=== PATIENT | female | born 1975 | race Caucasian/White ===

== ENCOUNTER 2020-01-19 11:32 | Emergency (ER) | payer OTHER, SELFPAY ==
--- NOTE | ~2020-01-19 | CT_ITS ---
EXAMINATION: CT abdomen pelvis w con EXAM DATE: 01/19/2020 13:38 INDICATION: Worsening left lower quadrant pain. TECHNIQUE: Spiral CT of the abdomen and pelvis was performed following intravenous injection of 100 m L Omnipaque 350. Axial, coronal and sagittal images were reviewed. The dose-length product (DLP) fo r this examination was 977.55 mGy-cm. The exposure was tailored according to patient size (auto mA e xposure control), and iterative reconstruction (ASIR) was used as additional dose reduction technique . There is no prior study for comparison. FINDINGS: There is bilateral adrenal gland hyperplasia. The liver, spleen, adrenal glands and pancre as are otherwise unremarkable. Gallbladder is unremarkable. No biliary obstruction. Portal and spl enic veins are patent. Kidneys enhance symmetrically. There is no hydronephrosis. Enlarged fibroi d uterus. Ovaries are unremarkable. The bladder is unremarkable. There is no retroperitoneal or pelv ic lymphadenopathy. There is mild to moderate scattered arteriosclerotic disease. Tiny umbilical fa t-containing hernia. The appendix is normal. The stomach and small bowel are unremarkable. There is expected amount of c olonic stool. No free intraperitoneal gas. The heart is normal in size. There are no pericardial or pleural effusions. Bibasilar linear banding appearance most consistent with subsegmental atelect asis. There is right lower lobe calcified granuloma. L5-S1 lumbar fusion. The bones are unremarkable . IMPRESSION: 1. No acute intra-abdominal findings. 2. Fibroid uterus. 3. Adrenal hyperplasia. 4. Bibasilar subsegmental atelectasis. Reviewed, dictated and finalized at location A.
[2020-01-19 11:57] VITALS: BP 143/79; PULSE 84; RESP 20; TEMP 36.9; O2SAT 100
[2020-01-19 12:06] VITALS: BP 143/79; PULSE 84; RESP 20; TEMP 36.9; O2SAT 100
--- NOTE | 2020-01-19 12:24 | PC.NURSE ---
AIXA Mclaughlin at bedside for assessment.
[2020-01-19 12:25] VITALS: BP 149/79; PULSE 75; RESP 11; O2SAT 95
[2020-01-19 12:41] VITALS: BP 150/83; PULSE 70; RESP 19; O2SAT 92
[2020-01-19 12:48] LABS: Basophils Absolute Auto 0.1 K/mm3 (0.0-0.1); Basophils Percent Auto 0.6 % (0.2-1.2); Eosinophils Absolute Auto 0.2 K/mm3 (0-0.3); Eosinophils Percent Auto 1.5 % (0-4.4); Hematocrit 45.3 % (37.0-47.0); Hemoglobin 15.8 g/dL (12.0-15.0); Immature Granulocyte Absolute 0.08 K/mm3 (0.00-0.031); Immature Granulocyte Percent A 0.6 % (0-0.5); Lymphocytes Absolute Auto 3.07 K/mm3 (0.9-3.2); Lymphocytes Percent Auto 22.1 % (18.3-44.2); Mean Corpuscular HGB Conc 34.9 g/dl (32-36); Mean Corpuscular Hemoglobin 32.2 pg (26-34); Mean Corpuscular Volume 92.3 fl (80-100); Mean Platelet Volume 11.8 fl (7.4-10.4); Monocytes Absolute Auto 1.1 K/mm3 (0.1-0.6); Monocytes Percent Auto 7.6 % (2.6-8.5); Neutrophils Absolute Auto 9.4 K/mm3 (1.3-6.7); Neutrophils Percent Auto 67.6 % (45.5-73.1); Platelet Count Result 171 k/mm3 (150-375); Red Blood Count 4.91 M/mm3 (4.2-5.4); Red Cell Distribution Width 13.3 % (11.5-14.5); White Blood Count 13.9 K/mm3 (4.5-10.0)
[2020-01-19 12:50] LABS: Add Urine Microscopic? NO; Appearance Urine Clear (Clear); Bilirubin Urine Negative (Negative); Blood Urine Negative (Negative); Color Urine Straw (Yellow); Glucose Urine UA Negative (Negative); Ketones Urine Negative (Negative); Leukocyte Esterase Ur Negative LEU/UL (Negative); Nitrate Urine Negative (Negative); Protein Urine Negative (Negative); Specific Grav Ur 1.008 (1.001-1.035); Urobilinogen Urine Negative mg/dL (<2.0)
[2020-01-19 12:57] LABS: Platelet Estimate Adequate (Adequate); Stomatocytes 1+ (NORMAL)
[2020-01-19 13:01] LABS: Alanine Aminotransferase 12 U/L (4-35); Alkaline Phosphatase 72 U/L (38-126); Anion Gap 10.6 mmol/L (7-16); Aspartate Amino Transferase 17 U/L (14-36); Bilirubin,Total 0.5 mg/dL (0.2-1.3); Blood Urea Nitrogen 10 mg/dL (7-17); Calcium 8.7 mg/dL (8.4-10.2); Carbon Dioxide 26 mmol/L (22-30); Chloride 101 mmol/L (98-107); Estimated CRCL calculation 110 ml/min; Estimated Glomerular Filt Rate > 60; Glucose 132 mg/dL (65-105); Potassium 3.6 mmol/L (3.4-5.0); Sodium 134 mmol/L (137-145)
--- NOTE | 2020-01-19 14:33 | ED.ABDPAIN ---
HPI - Abdominal Pain General Chief Complaint: Abdominal Pain Stated Complaint: fever x4 days, back/abd pain Time Seen by Provider: 01/19/20 12:05 Source: patient Mode of arrival: ambulatory Limitations: no limitations History of Present Illness HPI narrative: Patient presents with chief complaint of left lower quadrant abdominal pain that has persisted over the past week. Patient states she is also noticed some episodes of sticky bowel movement. Patient denies extremely foul odor or watery texture. Patient denies any blood noted in her stool. Patient states that she has been on Augmentin for a sinus infection which she began on 08 January but she does not believe that it is connected with her current symptoms. Patient states that she believes her symptoms are due to something with her colon on her ovary. Patient states that she was told that she had ovarian cyst at one point in time. Patient has not had any nausea, vomiting. Patient states that she took her temperature the past few days and noted that it was 100.3 so she felt she had a fever. Patient has been able to eat and drink normally. Patient states that she has not seen her primary care Jani Vo regarding her symptoms. Related Data Home Medications Medication Instructions Recorded Confirmed Humulin 70/30 U-100 Insulin 10 unit SUBCUT DAILY 07/01/19 07/02/19 amlodipine 10 mg PO HS 07/01/19 07/01/19 dicyclomine 10 mg PO QID PRN 07/01/19 07/01/19 hydrocodone-acetaminophen [[place]] 1 tablet PO BID PRN 07/01/19 07/01/19 losartan 50 mg PO HS 07/01/19 07/01/19 paroxetine HCl [Paxil] 60 mg PO HS 07/01/19 07/01/19 ascorbic acid (vitamin C) mg PO 01/19/20 cholecalciferol (vitamin D3) [Kids 10 mcg PO DAILY 01/19/20 Vitamin D3] magnesium oxide 400 mg PO DAILY 01/19/20 mv,Ca,ecr-dnlb-ZI-guarana-caff tablet PO 01/19/20 [One-[employer]] potassium chloride 10 meq PO DAILY 01/19/20 solifenacin 10 mg PO DAILY 01/19/20 Allergies Allergy/AdvReac Type Severity Reaction Status Date / Time No Known Allergies Allergy Verified 01/19/20 12:03 Review of Systems Review of Systems: Narrative: CONSTITUTIONAL: Denies fever, chills, or sweats. EYES: Denies visual changes, redness, or discharge. ENT: Denies rhinorrhea, congestion, sore throat, or otalgia. CARDIOVASCULAR: Denies chest pain, palpitations, or edema. RESPIRATORY: Denies cough or dyspnea. GASTROINTESTINAL: Reports abdominal pain, nausea, reports sticky stool denies vomiting, GENITOURINARY: Denies dysuria or hematuria. SKIN: Denies rash or itching. MUSCULOSKELETAL: Denies back pain, joint pain, or myalgia. NEUROLOGIC: Denies headache, numbness, dizziness, or weakness. PSYCHIATRIC: Denies anxiety or depression. [facility] Past Medical History Medical History (Updated 01/19/20 @ 14:37 by Fatuma Krueger PA-C) Essential hypertension Heart murmur Hypertension associated with diabetes Mixed anxiety depressive disorder Systolic ejection murmur Tobacco abuse Type II diabetes mellitus Surgical History Surgical History H/O dilation and curettage History of X2 History of lumbar fusion Social History Social History Smoking packs per day: 1 Smoking cigarettes per day: 20.0 Years smoked: 21 Smoking pack-years: 21.00 Smoking status: Current every day smoker Tobacco type: cigarettes Alcohol intake: current Substance use: never Gender identity (if verbalized by the patient): Female Sexual Orientation (if Verbalized by the Patient): Straight or Heterosexual Spiritual care concerns: No Agree to blood products: Yes Exam Narrative: Exam Narrative: GENERAL: Well-appearing, well-nourished, and in no acute distress. HEAD: Normocephalic, atraumatic. EYES: PERRLA and EOMI. ENT: Nares clear, no rhinorrhea or epistaxis. Mucous membranes moist. Oropharynx without tonsillar hypertrophy
[2020-01-19 14:54] VITALS: BP 146/84; PULSE 68; RESP 12; TEMP 37.2; O2SAT 97
== END 2020-01-19 14:56 | disposition home or self-care (01) ==
PROVIDERS: Physician Assistant; Emergency Provider Emergency Medicine
DX: R10.32 Left lower quadrant pain (principal); I10 Essential (primary) hypertension; E11.9 Type 2 diabetes mellitus without complications; F41.8 Other specified anxiety disorders; Z79.4 Long term (current) use of insulin; Z98.1 Arthrodesis status; F17.210 Nicotine dependence, cigarettes, uncomplicated; D25.9 Leiomyoma of uterus, unspecified; E27.8 Other specified disorders of adrenal gland
CPT/HCPCS: 36415; 74177; 80053; 81003; 81025; 85025; 99284; Q9967

== ENCOUNTER 2020-03-12 09:21 | Outpatient (CLI) | payer OTHER, SELFPAY ==
--- NOTE | ~2020-03-12 | MMUS_ITS ---
EXAMINATION: MM diagnostic flora BI w bianca, US breast BI limited HISTORY: Right breast lump for one month TECHNIQUE: ML, MLO and cc full field Tomosynthesis views of each breast 3-D tomosynthesis images were performed and synthetic 2-D images were generated. CAD analysis was submitted and interpreted. High resolution targeted right and left inner lower and outer lower quadrant breast ultrasound was perform ed. COMPARISON: None BREAST PARENCHYMAL COMPOSITION: There are scattered areas of fibroglandular density. FINDINGS: MAMMOGRAPHIC FINDINGS: There is an approximately 2.1 x 2.6 0.4 cm mass in the inferolateral right subareolar area. Ultrasoun d correlation was obtained. Approximately 3.5 x 9 mm reniform low-density circumscribed opacity is noted anteriorly in the lower outer left breast. 6 x 11 mm circumscribed reniform low-density opacity is noted anteriorly in the lower inner quadrant of the left breast. ULTRASOUND: Right breast: 8-9:00 position 4 cm from nipple: 1.2 x 2.1 x 2.9 cm circumscribed oval parallel solid mass is noted, with internal vascularity. Consider ultrasound-guided biopsy for tissue diagnosis. 8-9:00 position 4 cm from nipple: There is a stellate hypoechoic approximately 10 mm deep 3.9 mm wide lesion, taller than wide, with posterior shadowing; this lesion is suspicious. Ultrasound-guided bio psy is recommended. Left breast: 3:00 3 cm from nipple: Parallel circumscribed 1.9 x 4.3 mm sonolucency, likely a small cyst 5:00 subareolar area: 5.4 x 4.2 x 3.9 mm hypoechoic lesion with posterior shadowing; consider ultraso und-guided biopsy 6:00 subareolar area: Parallel circumscribed hypoechoic 3.7 x 10.1 x 9.9 mm lesion without internal v ascularity or suspicious shadowing, likely benign IMPRESSION: 1. Right breast 8-9:00 up to 2.9 cm solid mass; consider ultrasound-guided biopsy 2. 8.-9:00 stellate hypoechoic lesion with shadowing; recommend ultrasound-guided biopsy 3. Hypoechoic shadowing 5:00 subareolar left 5.4 x 4.2 x 3.9 mm lesion; consider ultrasound-guided bi opsy BI-RADS category 4, suspicious findings. Reviewed, dictated and finalized at location A. IMPRESSION: 1. Right breast 8-9:00 up to 2.9 cm solid mass; consider ultrasound-guided biop sy 2. 8.-9:00 stellate hypoechoic lesion with shadowing; recommend ultrasound-guid ed biopsy 3. Hypoechoic shadowing 5:00 subareolar left 5.4 x 4.2 x 3.9 mm lesion; conside r ultrasound-guided biopsy BI-RADS category 4, suspicious findings.
== END 2020-03-12 09:22 | disposition home or self-care (01) ==
PROVIDERS: Visit Provider Nurse Practitioner Obstetrics & Gynecology
DX: N63.10 Unspecified lump in the right breast, unspecified quadrant (principal); R92.8 Other abnormal and inconclusive findings on diagnostic imaging of breast
CPT/HCPCS: 76642; 77062; 77066; G0279

== ENCOUNTER 2020-05-22 02:17 | Outpatient (CLI) | payer OTHER, SELFPAY ==
[2020-05-22 19:10] LABS: SARS-CoV-2 RNA PCR Negative
== END 2020-05-22 02:18 | disposition home or self-care (01) ==
LOC: ANHCOVIDDT 02:18
PROVIDERS: PCP Internal Medicine Infectious Disease; Visit Provider Obstetrics & Gynecology
DX: Z01.812 Encounter for preprocedural laboratory examination (principal); Z20.828 Contact with and (suspected) exposure to other viral communicable diseases
CPT/HCPCS: 87635; C9803; U0003

== ENCOUNTER 2020-05-22 08:27 | Outpatient (CLI) | payer OTHER, SELFPAY ==
--- NOTE | 2020-05-22 08:29 | ECG_ITS ---
Measurements Intervals [place] Rate: 69 P: -63 MN: 147 QRS: 55 QRSD: 90 T: 53 QT: 402 QTc: 433 Interpretive Statements ECTOPIC ATRIAL RHYTHM BASELINE ARTIFACT- I, II, III, AVR, AVL, AVF, V3-V4 ABNORMAL ECG Electronically Signed On 05-22-2020 8:44:29 [employer] by Vipin Weinstein D.O.
[2020-05-22 08:50] LABS: Basophils Absolute Auto 0.1 K/mm3 (0.0-0.1); Basophils Percent Auto 0.7 % (0.2-1.2); Eosinophils Absolute Auto 0.3 K/mm3 (0-0.3); Hematocrit 45.7 % (37.0-47.0); Hemoglobin 15.6 g/dL (12.0-15.0); Immature Granulocyte Absolute 0.06 K/mm3 (0.00-0.031); Immature Granulocyte Percent A 0.5 % (0-0.5); Lymphocytes Absolute Auto 2.89 K/mm3 (0.9-3.2); Lymphocytes Percent Auto 21.9 % (18.3-44.2); Mean Corpuscular HGB Conc 34.1 g/dl (32-36); Mean Corpuscular Hemoglobin 32.6 pg (26-34); Mean Corpuscular Volume 95.6 fl (80-100); Mean Platelet Volume 11.5 fl (7.4-10.4); Monocytes Absolute Auto 1.4 K/mm3 (0.1-0.6); Monocytes Percent Auto 10.5 % (2.6-8.5); Neutrophils Absolute Auto 8.5 K/mm3 (1.3-6.7); Neutrophils Percent Auto 64.4 % (45.5-73.1); Nucleated Red Blood Cells Perc 0.2 % (0.0-0.2); Platelet Count Result 184 k/mm3 (150-375); Red Blood Count 4.78 M/mm3 (4.2-5.4); Red Cell Distribution Width 13.4 % (11.5-14.5); White Blood Count 13.2 K/mm3 (4.5-10.0)
[2020-05-22 08:58] LABS: Alanine Aminotransferase 16 U/L (4-35); Albumin Level 4.1 g/dL (3.5-5.1); Alkaline Phosphatase 89 U/L (38-126); Anion Gap 6 mmol/L (8-16); Aspartate Amino Transferase 22 U/L (14-36); Bilirubin,Total 0.4 mg/dL (0.2-1.3); Blood Urea Nitrogen 15 mg/dL (7-17); Calcium 9.1 mg/dL (8.4-10.2); Carbon Dioxide 29 mmol/L (22-30); Chloride 101 mmol/L (98-107); Estimated Glomerular Filt Rate > 60; Glucose 152 mg/dL (65-105); Potassium 4.1 mmol/L (3.4-5.0); Sodium 136 mmol/L (137-145)
== END 2020-05-22 08:28 | disposition home or self-care (01) ==
LOC: ANHSURGERY 08:29
PROVIDERS: PCP Physician Assistant; Visit Provider Obstetrics & Gynecology
DX: Z01.818 Encounter for other preprocedural examination (principal); D25.9 Leiomyoma of uterus, unspecified; I10 Essential (primary) hypertension; I49.1 Atrial premature depolarization
CPT/HCPCS: 36415; 80053; 85025; 86850; 86900; 86901; 87635; 93005; U0003

== ENCOUNTER 2020-05-26 15:02 | Inpatient (IN) | payer OTHER, SELFPAY ==
[2020-05-05 15:08] VITALS: BMI 33.0
--- NOTE | 2020-05-08 14:37 | PC.NURSE ---
date and time change given. states no change in health hx since last interview on 05/05/20
[2020-05-25] VITALS (14 sets, daily range): BP systolic 124–162; BP diastolic 61–76; PULSE 64–79; RESP 14–20; TEMP 36.4–37.2; O2SAT 93–100
--- NOTE | 2020-05-25 07:12 | WPDANESEPPF ---
Anes - Initial Pre Proc Eval Procedure: Operation Date: 05/25/20 09:00 Proposed Procedures p Total Laparoscopic Hysterectomy, Bilateral Salpingo-Oophorectomy - Marixa Meza MD Date/Time: 05/25/20 07:12 Surgeon: Marixa Meza MD Pre Op Diagnosis: Uterine Leiomyoma Patient Data Age: 44 Gender: F Height: 1.65 m Weight: 89.91 kg Allergies Allergy/AdvReac Type Severity Reaction Status Date / Time No Known Allergies Allergy Verified 05/25/20 07:33 Home Medications Medication Instructions Recorded Confirmed Type Humulin 70/30 U-100 Insulin 10 unit SUBCUT DAILY 07/01/19 05/05/20 History amlodipine 10 mg PO DAILY 07/01/19 05/25/20 History hydrocodone-acetaminophen [[place]] 1 tablet PO PRN PRN 07/01/19 05/05/20 History losartan 50 mg PO DAILY 07/01/19 05/25/20 History paroxetine HCl [Paxil] 60 mg PO DAILY 07/01/19 05/25/20 History aspirin [Children's Aspirin] 81 mg PO QAM 30 Days #30 tablet 07/02/19 05/05/20 Rx ascorbic acid (vitamin C) 500 mg PO DAILY 01/19/20 05/05/20 History cholecalciferol (vitamin D3) [Kids 10 mcg PO DAILY 01/19/20 05/05/20 History Vitamin D3] magnesium oxide 400 mg PO DAILY 01/19/20 05/05/20 History mv,Ca,wfp-topy-FB-guarana-caff 1 tablet PO DAILY 01/19/20 05/05/20 History [[employer]] potassium chloride 10 meq PO DAILY 01/19/20 05/05/20 History solifenacin 10 mg PO DAILY 01/19/20 05/05/20 History Patient hx anesthesia problems: none Family hx anesthesia problems: none PMFSH Past Medical History Medical History (Updated 05/25/20 @ 07:14 by Ryder Cunningham MD) Anxiety Chronic narcotic use COPD (chronic obstructive pulmonary disease) Depression Essential hypertension Heart murmur Hypertension associated with diabetes Mixed anxiety depressive disorder Obesity Systolic ejection murmur TIA (transient ischemic attack) Tobacco abuse Type II diabetes mellitus Surgical History Surgical History H/O dilation and curettage History of X2 History of lumbar fusion Family History Family History Father Hypertension Murmur Pacemaker Mother Seizure Social History Social History Smoking packs per day: 1 Smoking cigarettes per day: 20.0 Years smoked: 25 Smoking pack-years: 25.00 Smoking status: Current every day smoker Tobacco type: cigarettes Alcohol intake: current Substance use: never Living arrangements: with family Gender identity (if verbalized by the patient): Female Spiritual care concerns: No Agree to blood products: Yes Anes - Eval Final PreProcedure Day of Procedure 05/25/20 07:12 Patient weight: obese Heart: regular rate and rhythm Lungs: clear to auscultation and normal air movement Airway: Mallampati scale class II Neurological: alert and oriented Last oral intake: >/= 8 hours ASA classification: III Emergent: no Anesthetic plan: proceed Anesthesia type and monitoring: general ETT Informed Consent: The patient's anesthetic plan and its attendant risks and benefits were discussed with the patient/family/POA. Questions were solicited and answers provided to the satisfaction of the patient/family/POA.
[2020-05-25] MEDS: LACTATED RINGERS 1,000 ML 30 ML IV CONT ×2 (07:50→12:15)
[2020-05-25 07:54] LABS: Glucose Point of Care 130 (65-105)
[2020-05-25] MEDS: ACETAMINOPHEN 500 MG TABLET 1000 MG PO (08:01)
[2020-05-25] MEDS: KETOROLAC 15 MG/ML VIAL (*BKC) IV PUSH (08:02)
--- NOTE | 2020-05-25 09:23 | WPDHPUPDATE1 ---
History and Physical Update Update Date/Time: 05/25/20 09:23 History and Physical has been reviewed, including an updated exam of the patient. There are NO changes in the patient's condition. Risks, benefits, and alternatives have been discussed and questions answered. Patient agrees to proceed with procedure.
[2020-05-25] MEDS: ceFAZolin 2 GM/D5W 50 ML 2 GM/50 ML BAG IVPB (09:28)
--- NOTE | 2020-05-25 12:30 | PM.PROC ---
Procedure Note - Detailed Date of procedure: 05/25/20 Pre-op diagnosis: Uterine Leiomyoma Severe menorrhagia Post-op diagnosis: same Procedure performed: Total laparoscopic hysterectomy bilateral salpingo-oophorectomy Description of procedure: The patient was taken to the operating room. She was prepped and draped in the dorsal lithotomy position. A speculum was placed in the vagina. The cervix was grasped with a tenaculum. Stay sutures were placed at 3 and 9:00 a.m. of 0 Vicryl. The stay sutures were brought through the [place] up. The FADI manipulator was placed in the vagina with a fixed Carmen cup. The cup was then pushed up around the cervix. The sutures were tied to the handle of the FADI manipulator. A 5 mm incision was made on the abdominal skin of the left upper quadrant using a scalpel. A 5 mm trocar was inserted into the intra-abdominal cavity under direct visualization the scope. Pneumoperitoneum was achieved. An 11 mm incision was made in the left lower quadrant of the abdomen with a scalpel. A 11 mm trocar was inserted into the intra-abdominal cavity under direct visualization the scope. A 5 mm periumbilical incision was made. A 5 mm scope was placed into the intra-abdominal cavity under direct visualization of the scope. The ureters were identified. The ureters were observed to be away from the infundibulopelvic ligaments. These infundibulopelvic ligaments were isolated, cauterized, and transected with LigaSure cautery. This was done in a bilateral fashion. The para ovarian tissue along the pelvic sidewall was cauterized and transected in a bilateral fashion using the ligature cautery. The round ligaments were cauterized and transected bilaterally with LigaSure cautery. The broad ligaments were cauterized and transected along the lateral aspects of the uterus down the level of the uterine arteries. A bladder flap was created using sharp and blunt dissection. The ureters were dissected out bilaterally down to the level of the uterine arteries. The could be visualized from the pelvic brim down the uterine arteries. Staying very close to the cervix the parametrium was cauterized transected in a stepwise fashion down to the level of the Carmen cup. The Bladder flap was moved distally over the Carmen cup using sharp and blunt dissection. The very large uterus was excised with a supracervical incision on crossed the lower uterine segment/cervix. A 4th trocar was placed in the right lower quadrant. This was done under direct visualization. An incision was was made with a scalpel that was 5 mm. 5 mm was trocar was inserted. Using 2 tenaculum in the cornu of the uterus the uterus is bifurcated. This was done with unipolar cautery. Tags were then placed on each fabi uterus. These tags were 0 Vicryl sutures with fredi placed on the 2 ends. The cup was visualized and a complete 360 degree papillary around the cervix. An incision was made with unipolar cautery down under the Carmen cup creating a colpotomy incision all the way around the cervix. The 2 tacks were placed in the vagina. The uterus tubes and ovaries were taken out through the vagina. A pneumo occluder was placed in the vagina. The vagina was closed with 0 V lock suture in a running fashion. The ureters were identified again and found to be intact elevated and the uterine arteries. The pelvis was irrigated with a copious amount of antibiotic irrigation. The pneumoperitoneum was reduced. The trocars were removed. The skin was closed subcuticular 4 Monocryl covered with Dermabond. The pneumo occluder was removed from the vagina. The vagina was irrigated with Betadine. The patient tolerated the procedure well. She was taken to the recovery room in stable condition. Sponge lap and needle counts were correct x2. Anesthesia: GETA Surgeon: Marixa Meza MD Estimated blood loss (mL): 200 Drains: No Packing: No Pathology: yes Complications: No immediate complications Condition: stable D
[2020-05-25 12:31] LABS: Glucose Point of Care 186 (65-105)
--- NOTE | 2020-05-25 13:26 | PC.NURSE ---
This patient, Andreea Weiss, was received from PACU per bed to room 288. Patient/family oriented to unit policies and routines
[2020-05-25] MEDS: KETOROLAC 30 MG/ML VIAL (*BKC) IV PUSH (13:38)
[2020-05-25] MEDS: DEXTROSE 5%/0.45% SOD CHL 1,000 ML 125 ML IV CONT (13:38)
[2020-05-25] MEDS: HYDROcodone/acetaminophen (*CRX) 10-325 MG TABLET 1 TAB PO (16:44)
[2020-05-25 16:54] LABS: Glucose Point of Care 224 (65-105)
[2020-05-25] MEDS: INSULIN HUMAN ISOPHAN/REGULAR 70/30 (*BKC) 100 UNITS/ML 10 UNITS SUB-Q (17:22)
[2020-05-25 21:11] LABS: Glucose Point of Care 156 (65-105)
[2020-05-25] MEDS: HYDROcodone/acetaminophen (*CRX) 5-325 MG TABLET 1 TAB PO (21:14)
[2020-05-26] VITALS (28 sets, daily range): BP systolic 91–169; BP diastolic 55–91; PULSE 75–107; RESP 13–30; TEMP 36.2–37.3; O2SAT 78–100
--- NOTE | ~2020-05-26 | CT_ITS ---
EXAMINATION: CT abdomen pelvis w con DATE: 05/26/2020 09:38 INDICATION: Abdominal pain. TECHNIQUE: Computed tomography (CT) of the abdomen and pelvis was performed with 100 mL Omnipaque 350 intravenous contrast. Automated exposure control and iterative reconstruction technique were employe d. The dose-length product was 1293.67 mGy-cm. COMPARISON: CT abdomen and pelvis 01/19/2020 FINDINGS: The visualized portions of the lung bases demonstrate mild atelectasis. A calcified right l nelson nodule and calcified right hilar lymph nodes are consistent with old granulomatous disease. No pl eural effusion. The heart size is normal. No pericardial effusion. Partially visualized is a 2.6 cm m ass in right breast. The liver and spleen are normal. The gallbladder is distended. The pancreas is n ormal. Again seen is thickening in the adrenal glands, likely benign. The kidneys are normal. There a re no dilated loops of bowel. The appendix is normal. There is a large volume of hemoperitoneum. Ther e is gas in the peritoneum and body wall, consistent with recent surgery. There are no pathologically enlarged lymph nodes. There are changes of anterior and posterior fusion procedures at L5-S1. There is chronic anterior wedging of multiple vertebral bodies. There is moderate thoracolumbar spondylosis . IMPRESSION: 1. Large volume of hemoperitoneum. I called this result to Dr. Meza. 2. Partially visualized 2.6 cm mass in right breast. The breast ultrasound from 03/12/2020 recommended biopsy. 3. Gallbladder distention, which may be secondary to fasting. Reviewed, dictated and finalized at location B. [facility] [employer]
[2020-05-26] MEDS: HYDROcodone/acetaminophen (*CRX) 5-325 MG TABLET 1 TAB PO ×4 (01:03→23:20)
[2020-05-26] MEDS: SODIUM CHLORIDE 0.9% IV 1,000 ML 125 ML IV CONT ×2 (08:21→19:22)
[2020-05-26] MEDS: INSULIN ASPART (*BKC) 100 UNITS/ML SUB-Q (08:22)
--- NOTE | 2020-05-26 08:22 | PM.GYNPNOP ---
[employer] - A/P Assessment and plan (1) Chronic narcotic use: Code(s): F11.90 - Opioid use, unspecified, uncomplicated Status: Acute (2) Anxiety: Code(s): F41.9 - Anxiety disorder, unspecified Status: Acute (3) Encounter for postoperative care: Code(s): Z48.89 - Encounter for other specified surgical aftercare Status: Acute Assessment and Plan: Postoperative day number wound from total laparoscopic hysterectomy bilateral salpingo oophorectomy. Patient is diaphoretic, mildly short of breath, normotensive with normal heart rate. May have some withdrawal symptoms, may have a complication of her surgery, may have poor control of her blood sugars. Her blood sugar was elevated at the time of observation. She is going to receive insulin, pain medication, stat CBC and CMP. Postoperative Procedures: Procedures Operation Date: 05/25/20 09:00 Actual Procedures Side Surgeon p Total Laparoscopic Hysterectomy, Bilateral Salpingo-Oophorectomy Marixa Meza MD Time Spent With Patient Time: Total time spent is greater than 50% in coordination of care (as documented) at patient's floor/unit and/or counseling patient: Time with patient: 15 - 25 minutes [employer]- PN:Subj Post-Op Subjective Date/time seen: 05/26/20 08:22 abdominal pain, diffuse, all over?, shortness of breath, sweating Exam Const: General: healthy appearing, diaphoretic and uncomfortable Resp: Auscultation: clear to auscultation bilaterally, no rales, no rhonchi and no wheezes Cardio: Rate: regular rate Heart sounds: no click, no murmurs and no rubs GI: Inspection: non-distended Auscultation: normal bowel sounds Other: Nondistended, soft, no rebound, no guarding. Positive bowel sounds Extrem: General: normal to inspection, no pedal edema and no calf tenderness [employer] - PN: Obj Data Vital Signs Vital Signs: Vital Signs - 24 hr 05/25/20 12:15 05/25/20 12:30 05/25/20 12:45 Temperature 97.6 F Pulse Rate 77 79 74 Respiratory Rate 15 20 18 Blood Pressure 159/75 H 131/61 162/63 H Pulse Oximetry 98 100 95 05/25/20 13:00 05/25/20 13:15 05/25/20 13:37 Temperature 98.5 F Pulse Rate 70 72 74 Respiratory Rate 14 16 16 Blood Pressure 151/61 H 147/63 H 159/65 H Pulse Oximetry 94 95 93 05/25/20 13:45 05/25/20 14:00 05/25/20 14:30 Temperature Pulse Rate 69 71 74 Respiratory Rate 16 16 16 Blood Pressure 147/69 H 145/62 H 149/65 H Pulse Oximetry 93 94 99 05/25/20 15:00 05/25/20 16:00 05/25/20 16:50 Temperature 98.7 F 98.7 F Pulse Rate 78 78 72 Respiratory Rate 16 18 Blood Pressure 137/67 138/65 140/65 Pulse Oximetry 96 99 96 05/25/20 19:15 05/26/20 00:00 05/26/20 04:00 Temperature 99.0 F 99.0 F 98.6 F Pulse Rate 77 75 78 Respiratory Rate 18 18 18 Blood Pressure 124/76 131/72 105/61 Pulse Oximetry 95 95 98 Intake/Output Intake/Output: Intake & Output 05/23/20 05/24/20 05/25/20 05/26/20 23:59 23:59 23:59 23:59 Intake Total 200 340 Output Total 315 600 Balance -115 -260 Meds/Results Medications: Active Medications Generic Name Dose Route Start Last Admin Trade Name Freq PRN Reason Stop Dose Admin Hydrocodone Bitart/Acetaminophen 1 tab 05/25/20 13:20 05/26/20 01:03 Hydrocodone/Acetaminophen (*Crx) 5-325 Mg Tablet PO 1 tab Q3H PRN Administration Pain Rated 5 or Less Hydrocodone Bitart/Acetaminophen 1 tab 05/25/20 13:20 05/25/20 16:44 Hydrocodone/Acetaminophen (*Crx) 10-325 Mg Tablet PO 1 tab Q3H PRN Administration Pain Rated 6 or Greater Amlodipine Besylate 10 mg 05/25/20 09:00 05/25/20 17:27 Amlodipine Besylate 5 Mg Tablet PO Not Given DAILY GLORIA Ascorbic Acid 500 mg 05/25/20 09:00 05/25/20 17:27 Ascorbic Acid 500 Mg Tablet PO Not Given DAILY GLORIA Dextrose 12.5 gm 05/25/20 18:23 Dextrose 50% 25 Gm/50 Ml Syringe IV PUSH PRN PRN Hypoglycemia Protocol Glucagon 1 mg 05/25/20 18:23 Glucagon For Inj
[2020-05-26 08:39] LABS: Glucose Point of Care 273 (65-105)
[2020-05-26 08:41] LABS: Hematocrit 24.6 % (37.0-47.0); Hemoglobin 8.6 g/dL (12.0-15.0); Mean Corpuscular Hemoglobin 32.8 pg (26-34); Mean Corpuscular Volume 93.9 fl (80-100); Mean Platelet Volume 12.2 fl (7.4-10.4); Platelet Count Result 204 k/mm3 (150-375); Red Blood Count 2.62 M/mm3 (4.2-5.4); Red Cell Distribution Width 13.1 % (11.5-14.5); White Blood Count 28.1 K/mm3 (4.5-10.0)
[2020-05-26 08:55] LABS: Alanine Aminotransferase 13 U/L (4-35); Albumin Level 2.8 g/dL (3.5-5.1); Alkaline Phosphatase 49 U/L (38-126); Anion Gap 4 mmol/L (8-16); Aspartate Amino Transferase 17 U/L (14-36); Bilirubin,Total 0.9 mg/dL (0.2-1.3); Blood Urea Nitrogen 21 mg/dL (7-17); Carbon Dioxide 23 mmol/L (22-30); Chloride 103 mmol/L (98-107); Estimated CRCL calculation 40 ml/min; Estimated Glomerular Filt Rate 32; Glucose 246 mg/dL (65-105); Sodium 130 mmol/L (137-145)
[2020-05-26 09:11] LABS: Glucose Point of Care 252 (65-105)
--- NOTE | 2020-05-26 10:02 | WPDANESEPPF ---
Anes - Initial Pre Proc Eval Procedure: Operation Date: 05/25/20 09:00 Proposed Procedures p Total Laparoscopic Hysterectomy, Bilateral Salpingo-Oophorectomy - Marixa Meza MD Operation Date: 05/26/20 11:00 Proposed Procedures p Diagnostic Laparoscopy - Marixa Meza MD Date/Time: 05/26/20 10:02 Surgeon: Marixa Meza MD Pre Op Diagnosis: Uterine Leiomyoma Patient Data Age: 44 Gender: F Height: 1.65 m Weight: 85.6 kg Last Vital Signs Temp 36.8 C 05/26/20 07:25 Pulse 90 05/26/20 07:25 Resp 18 05/26/20 07:25 BP 91/58 L 05/26/20 07:25 Pulse Ox 95 05/26/20 07:25 Allergies Allergy/AdvReac Type Severity Reaction Status Date / Time No Known Allergies Allergy Verified 05/25/20 07:33 Home Medications Medication Instructions Recorded Confirmed Type Humulin 70/30 U-100 Insulin 10 unit SUBCUT DAILY 07/01/19 05/05/20 History amlodipine 10 mg PO DAILY 07/01/19 05/25/20 History hydrocodone-acetaminophen [[place]] 1 tablet PO PRN PRN 07/01/19 05/05/20 History losartan 50 mg PO DAILY 07/01/19 05/25/20 History paroxetine HCl [Paxil] 60 mg PO DAILY 07/01/19 05/25/20 History aspirin [Children's Aspirin] 81 mg PO QAM 30 Days #30 tablet 07/02/19 05/05/20 Rx ascorbic acid (vitamin C) 500 mg PO DAILY 01/19/20 05/05/20 History cholecalciferol (vitamin D3) [Kids 10 mcg PO DAILY 01/19/20 05/05/20 History Vitamin D3] magnesium oxide 400 mg PO DAILY 01/19/20 05/05/20 History mv,Ca,rpq-ofed-HI-guarana-caff 1 tablet PO DAILY 01/19/20 05/05/20 History [One-[employer]] potassium chloride 10 meq PO DAILY 01/19/20 05/05/20 History solifenacin 10 mg PO DAILY 01/19/20 05/05/20 History Laboratory Tests 05/25/20 05/25/20 05/25/20 12:29 16:50 21:06 WBC RBC Hgb Hct MCV MCH MCHC RDW Plt Count MPV Sodium Potassium Chloride Carbon Dioxide Anion Gap BUN Creatinine Estim Creat Clear Calc Estimated GFR Glucose POC Capillary Glucose 186 mg/dl H mg/dl 224 mg/dl H mg/dl 156 mg/dl H mg/dl (65-105) (65-105) (65-105) Calcium Total Bilirubin AST ALT Alkaline Phosphatase Total Protein Albumin 05/26/20 05/26/20 05/26/20 08:00 08:34 08:34 WBC 28.1 K/mm3 H K/mm3 (4.5-10.0) RBC 2.62 M/mm3 L M/mm3 (4.2-5.4) Hgb 8.6 g/dL L D g/dL (12.0-15.0) Hct 24.6 % L % (37.0-47.0) MCV 93.9 fl fl (80-100) MCH 32.8 pg pg (26-34) MCHC 35.0 g/dl g/dl (32-36) RDW 13.1 % % (11.5-14.5) Plt Count 204 k/mm3 k/mm3 (150-375) MPV 12.2 fl H fl (7.4-10.4) Sodium 130 mmol/L L mmol/L (137-145) Potassium 4.0 mmol/L mmol/L (3.4-5.0) Chloride 103 mmol/L mmol/L (98-107) Carbon Dioxide 23 mmol/L mmol/L (22-30) Anion Gap 4 mmol/L L mmol/L (8-16) BUN 21 mg/dL H mg/dL (7-17) Creatinine 1.70 mg/dL H mg/dL (0.7-1.0) Estim Creat Clear Calc 40 ml/min ml/min Estimated GFR 32 L (59 - ) Glucose 246 mg/dL H mg/dL (65-105) POC Capillary Glucose 273 mg/dl H mg/dl (65-105) Calcium 8.0 mg/dL L mg/dL (8.4-10.2) Total Bilirubin 0.9 mg/dL mg/dL (0.2-1.3) AST 17 U/L U/L (14-36) ALT 13 U/L U/L (4-35) Alkaline Phosphatase 49 U/L U/L (38-126) Total Protein 5.0 g/dL L g/dL (6.3-8.2) Albumin 2.8 g/dL L g/dL (3.5-5.1) 05/26/20 08:52 WBC RBC Hgb Hct MCV MCH MCHC RDW Plt Count MPV Sodium Potassium Chloride Carbon
--- NOTE | 2020-05-26 10:24 | P.HPUP_ITS ---
History and Physical Update Update Date/Time: 05/26/20 10:24 this patient is a 44-year-old female who is 1 day po stop from a total laparoscopic hysterectomy. She was evaluated and found to be in mild distress with some hypotension. CT of the abdomen pelvis reveal a large hemoperitoneum. She was markedly anemic and given blood and we agreed to proceed with diagnostic laparoscopy to reduce the hemoperitoneum and to stop any existing bleeding. Patient understands risks, benefits, and alternatives. She has completed the informed consent process or a proceed. History and Physical has been reviewed, including an updated exam of the patient. There are NO changes in the patient's condition. Risks, benefits, and alternatives have been discussed and questions answered. Patient agrees to proceed with procedure.
[2020-05-26] MEDS: LACTATED RINGERS 1,000 ML 30 ML IV CONT ×2 (10:32→13:26)
[2020-05-26] MEDS: ceFAZolin SODIUM 1 GM VIAL 2 GM IV PUSH (10:52)
--- NOTE | 2020-05-26 11:38 | SUR.OPER ---
exofin on previous port sites x5 with adhesive remover
--- NOTE | 2020-05-26 12:26 | PC.NURSE ---
Addendum entered by Apoorva Lopez RN 05/26/20 13:13: 0800-Pt's abdomen palpated, soft, pt did not report increased pain with palpation. no vaginal flow noted. Original Note: [id number] Pt found lying in bed. Color pale and slightly yellow. Breathing rapidly, 30 per minute. Diaphoretic. She complains of abdominal pain and feels like her skin is burning. Dr. Meza present. o2 placed per nasal canula at 2 L. Blood sugar 257. VS. 97/65 Pulse 89 O2 sat 89%. IV of Normal saline hung. Novolog 3 units given per sliding scale. N5x2 given. Mild hypotension continues. Pulse 90's-100's. 0850 blood sugar 253. Lab called to report hemalobin of 8.6. Dr. Meza orders CT of abdomen with contrast. [id number] Pt to Radiology. 944- pt returned from radiology. 114/65 pulse 85 O2 100%. IV infusing O2 2L/NC 1010- Pt taken to OR, report called
--- NOTE | 2020-05-26 13:08 | SUR.OPER ---
final dressing fluffs, telfa, abd pad and tape
[2020-05-26 13:11] LABS: INR 1.3; Prothrombin Time 16.3 Seconds (11.1-14.7)
[2020-05-26 13:12] LABS: Partial Thromboplastin Time 24.7 SECONDS (22.3-36.8)
--- NOTE | 2020-05-26 13:18 | P.OP_ITS ---
Procedure Note - Detailed Date of procedure: 05/26/20 Pre-op diagnosis: Uterine Leiomyoma Hemoperitoneum, postoperative hemorrhage Post-op diagnosis: same Procedure performed: Exploratory laparotomy with ligation of pelvic vessels. Description of procedure: The patient was taken the operating room. She was prepped and draped in the dorsal lithotomy position after induction of general anesthesia. A 5 mm left upper quadrant incision was made in the abdominal skin with a scalpel. A 5 mm trocar was inserted the intra-abdominal cavity under direct visualization of the scope. A 5 mm left lower quadrant incision was made with the scalp on the abdominal skin and a 5 mm trocar was inserted the intra- abdominal cavity under direct visualization of the scope. A 5 mm infraumbilical incision was made with scalpel and a 5 mm trocar was inserted into the intra- abdominal cavity under direct visualization of the scope. Incisions from her initial surgery were used. The left lower quadrant trocar site was traded out for an 11 mm trocar for the larger suction cannula. Large amounts of blood were observed. It was adherent to all the structures of interest. After irrigation and evacuation of a moderate amount of blood the decision was made to open the patient to identify the bleeding area and making hemostatic. And incisions made in the abdomen from the infraumbilical area down to the mons pubis. Skin incision was carried down level of fascia with the knife. The fascial incise the midline. The fascial incision was in the superior and inferior with good visualization of the bladder. Preperitoneal fat was transected in the peritoneal cavity was entered bluntly. Peritoneal incision was then superiorly inferior with good visualization of the bladder. The abdomen was irrigated with copious normal saline. Clots were removed manually. Clots and irrigation removed from the upper abdomen. A self-retaining retractor was inserted in the abdomen and the bowel was packed into the upper abdomen. The pelvis was examined and bleeding area the pelvis was identified. It was sutured in the left lower pelvis. Gelfoam and hematoma were placed in this area as well. The pelvis had been carefully examined. The vaginal cuff was intact and hemostatic. The right adnexa was hemostatic. The self-retaining retractor packing were removed. Fascia was closed with a 0 loop Maxon in a running fashion. Subcutaneous fat was closed with 3 O Vicryl. The skin was closed with fredi. Patient tolerated procedure well. She was taken cover stable conditions. Sponge lap and needle counts were correct x2. Anesthesia: AZALIAA Surgeon: Marixa Meza MD Estimated blood loss (mL): 300 Drains: No Packing: No Complications: No immediate complications Condition: stable Disposition: PACU Findings: 2 L of blood was found in the intra-abdominal cavity. Bleeding area was found in the left lower pelvis. This area was lateral to the left ureter proximal to the uterine artery.
[2020-05-26 13:33] LABS: Glucose Point of Care 183 (65-105)
[2020-05-26 14:24] LABS: Hematocrit 30.1 % (37.0-47.0); Hemoglobin 10.2 g/dL (12.0-15.0)
--- NOTE | 2020-05-26 14:45 | SUR.PHASEI ---
1445 - dr. lazo called with H&H results. no new orders received.
[2020-05-26 17:07] LABS: Glucose Point of Care 183 (65-105)
[2020-05-26 17:36] LABS: Alanine Aminotransferase 12 U/L (4-35); Albumin Level 2.4 g/dL (3.5-5.1); Alkaline Phosphatase 47 U/L (38-126); Anion Gap 3 mmol/L (8-16); Aspartate Amino Transferase 20 U/L (14-36); Bilirubin,Total 0.6 mg/dL (0.2-1.3); Blood Urea Nitrogen 19 mg/dL (7-17); Calcium 7.5 mg/dL (8.4-10.2); Carbon Dioxide 25 mmol/L (22-30); Chloride 105 mmol/L (98-107); Estimated CRCL calculation 74 ml/min; Estimated Glomerular Filt Rate > 60; Glucose 177 mg/dL (65-105); Potassium 3.7 mmol/L (3.4-5.0); Sodium 133 mmol/L (137-145)
[2020-05-26 19:21] LABS: Glucose Point of Care 171 (65-105)
[2020-05-26] MEDS: amLODIPine BESYLATE 5 MG TABLET 10 MG PO (19:22)
[2020-05-26] MEDS: LOSARTAN POTASSIUM 50 MG TABLET PO (19:22)
[2020-05-26 21:18] LABS: Glucose Point of Care 160 (65-105)
[2020-05-26] MEDS: SIMETHICONE 80 MG TAB.CHEW PO (23:20)
[2020-05-26 23:34] LABS: Glucose Point of Care 173 (65-105)
[2020-05-27] VITALS (20 sets, daily range): BP systolic 99–144; BP diastolic 49–72; PULSE 74–86; RESP 15–20; TEMP 36.7–37.3; O2SAT 97–99
[2020-05-27 01:15] LABS: Glucose Point of Care 175 (65-105)
[2020-05-27 03:09] LABS: Glucose Point of Care 170 (65-105)
[2020-05-27] MEDS: HYDROcodone/acetaminophen (*CRX) 5-325 MG TABLET 1 TAB PO ×3 (03:11→07:43)
[2020-05-27] MEDS: SIMETHICONE 80 MG TAB.CHEW PO ×5 (03:11→20:12)
[2020-05-27] MEDS: SODIUM CHLORIDE 0.9% IV 1,000 ML 125 ML IV CONT (03:12)
[2020-05-27 04:22] LABS: Immature Platelet Fraction Pct 9.8 % (0.9-11.2); Mean Corpuscular HGB Conc 35.2 g/dl (32-36); Mean Corpuscular Hemoglobin 31.8 pg (26-34); Mean Corpuscular Volume 90.3 fl (80-100); Mean Platelet Volume 11.8 fl (7.4-10.4); Platelet Count Result 122 k/mm3 (150-375); Red Blood Count 2.17 M/mm3 (4.2-5.4); Red Cell Distribution Width 14.6 % (11.5-14.5)
[2020-05-27 04:26] LABS: Hematocrit 19.6 % (37.0-47.0); Hemoglobin 6.9 g/dL (12.0-15.0)
[2020-05-27 04:28] LABS: Potassium 3.4 mmol/L (3.4-5.0)
--- NOTE | 2020-05-27 04:45 | PC.NURSE ---
Patient notified of orders for blood transfusion, she is okay with that and verbalized understanding. Will get consent signed.
[2020-05-27 05:23] LABS: Glucose Point of Care 168 (65-105)
--- NOTE | 2020-05-27 05:49 | PC.NURSE ---
0417 Labs drawn early, call to lab to request STAT results due to decrease in patient's blood pressure and generalized abdominal pain. Spoke with Micki. 0425 Received call from Micki in lab re: critical H&H, she will result now. 0428 Critical H&H received and reported to Dr. Meza. See provider communication. 8168 Order placed for 2 units PRBC's. 2400 Call to blood bank to check on status of blood, spoke with Vero, she states Type and Cross may take awhile, advised patient had Type and Cross and received blood yesterday. She will check on status and let us know.
--- NOTE | 2020-05-27 07:33 | WPDANESPN ---
Anes - Prog Note Post-Op Date/Time: 05/27/20 07:33 Cardiovascular status: normal Respiratory status: normal Airway patency: baseline Mental status: baseline Post-Op hydration status: normal Vital Signs: Last Vital Signs Temp 37.3 C 05/27/20 07:05 Pulse 78 05/27/20 07:05 Resp 18 05/27/20 07:05 BP 101/53 L 05/27/20 07:05 Pulse Ox 97 05/27/20 07:05 Pain Score (VAS): 0/0 I/O: Intake & Output 05/26/20 05/26/20 05/27/20 15:59 23:59 07:59 Intake Total 800 1200 Output Total 290 1025 Balance 510 175 Laboratory Tests 05/27/20 04:16 05/27/20 04:16 05/22/20 05/26/20 05/26/20 08:29 08:00 08:29 WBC RBC Hgb Hct MCV MCH MCHC RDW Plt Count MPV % Immature Plt Fraction PT INR APTT Sodium Potassium Chloride Carbon Dioxide Anion Gap BUN Creatinine Estim Creat Clear Calc Estimated GFR Glucose POC Capillary Glucose 273 H Calcium Total Bilirubin AST ALT Alkaline Phosphatase Total Protein Albumin Blood Type TNP Cancelled Rho(D) Type Cancelled Antibody Screen TNP Cancelled Crossmatch See Detail See Detail 05/26/20 05/26/20 05/26/20 08:34 08:34 08:52 WBC 28.1 H RBC 2.62 L Hgb 8.6 L D Hct 24.6 L MCV 93.9 MCH 32.8 MCHC 35.0 RDW 13.1 Plt Count 204 MPV 12.2 H % Immature Plt Fraction PT INR APTT Sodium 130 L Potassium 4.0 Chloride 103 Carbon Dioxide 23 Anion Gap 4 L BUN 21 H Creatinine 1.70 H Estim Creat Clear Calc 40 Estimated GFR 32 L Glucose 246 H POC Capillary Glucose 252 H Calcium 8.0 L Total Bilirubin 0.9 AST 17 ALT 13 Alkaline Phosphatase 49 Total Protein 5.0 L Albumin 2.8 L Blood Type Rho(D) Type Antibody Screen Crossmatch 05/26/20 05/26/20 05/26/20 12:25 13:31 13:57 WBC RBC Hgb 10.2 L Hct 30.1 L MCV MCH MCHC RDW Plt Count MPV % Immature Plt Fraction PT 16.3 H INR 1.3 APTT 24.7 Sodium Potassium Chloride Carbon Dioxide Anion Gap BUN Creatinine Estim Creat Clear Calc Estimated GFR Glucose POC Capillary Glucose 183 H Calcium Total Bilirubin AST ALT Alkaline Phosphatase Total Protein Albumin Blood Type Rho(D) Type Antibody Screen Crossmatch 05/26/20 05/26/20 05/26/20 17:04 17:16 19:18 WBC RBC Hgb Hct MCV MCH MCHC RDW Plt Count MPV % Immature Plt Fraction PT INR APTT Sodium 133 L Potassium 3.7 Chloride 105 Carbon Dioxide 25 Anion Gap 3 L BUN 19 H Creatinine 0.90 Estim Creat Clear Calc 74 Estimated GFR > 60 Glucose 177 H POC Capillary Glucose 183 H 171 H Calcium 7.5 L Total Bilirubin 0.6 AST 20 ALT 12 Alkaline Phosphatase 47 Total Protein 5.0 L Albumin 2.4 L Blood Type Rho(D) Type Antibody Screen Crossmatch 05/26/20 05/26/20 05/27/20 21:10 23:19 01:11 WBC RBC Hgb Hct MCV MCH MCHC RDW Plt Count MPV % Immature Plt Fraction PT INR APTT Sodium Potassium Chloride Carbon Dioxide Anion Gap BUN Creatinine Estim Creat Clear Calc Estimated GFR Glucose POC Capillary Glucose 160 H 173 H 175 H Calcium Total Bilirubin AST ALT Alkaline Phosphatase Total Protein Albumin Blood Type Rho(D) Type Antibody Screen Crossmatch 05/27/20 05/27/20 05/27/20 03:01 04:16 04:16 WBC 20.0 H RBC 2.17 L Hgb 6.9 L* D Hct 19.6 L* MCV 90.3 MCH 31.8 MCHC 35.2 RDW 14.6 H Plt Count 122 L MPV 11.8 H % Immature Plt Fraction 9.8 PT INR APTT Sodium Potassium 3.4 Chloride Carbon Dioxide Anion Gap BUN
--- NOTE | 2020-05-27 07:36 | PM.GYNPNOP ---
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 No shortness of breath. No diaphoresis today. She has abdominal pain consistent with the surgeries that she has had. She is receiving blood. She is getting another 2 units of packed red blood cells. She had hemoglobin of 6.9 this morning. I do not believe this is a dramatic change that it represents. I believe the postoperative hemoglobin of 10 was misleading. I believe would have been much lower at that time Despite having two intraoperative units. There was large blood loss. Stable at this time. Continue observation. Postoperative Procedures: Procedures Operation Date: 05/25/20 09:00 Actual Procedures Side Surgeon p Total Laparoscopic Hysterectomy, Bilateral Salpingo-Oophorectomy Marixa Meza MD Operation Date: 05/26/20 11:00 Actual Procedures Side Surgeon p Exploratory Laparotomy with cauterization of pelvic bleeding Not Applicable Marixa Meza MD Time Spent With Patient Time: Total time spent is greater than 50% in coordination of care (as documented) at patient's floor/unit and/or counseling patient: Time with patient: 15 - 25 minutes GEOTHERMAL POWERPLANT MECHANIC- PN:Subj Post-Op Subjective Date/time seen: 05/27/20 07:36Denies shortness of breath, diffuse abdominal pain, denies any nausea, vomiting. Exam Const: General: healthy appearing, comfortable and no acute distress Resp: Auscultation: clear to auscultation bilaterally, no rales, no rhonchi and no wheezes Cardio: Rate: regular rate Heart sounds: no click, no murmurs and no rubs GI: Inspection: non-distended GI Palp: Yes abdominal tenderness, Yes Soft to palpation and Yes Guarding due to palpation present (GI) Percussion: Yes normal to percussion Auscultation: normal bowel sounds Other: multiple Incisions clean dry and intact Extrem: General: normal to inspection, no pedal edema and no calf tenderness GEOTHERMAL POWERPLANT MECHANIC - PN: Obj Data Vital Signs Vital Signs: Vital Signs - 24 hr 05/26/20 08:10 05/26/20 08:15 05/26/20 08:20 Temperature 97.8 F Pulse Rate 89 101 H 97 Respiratory Rate 30 H 30 H Blood Pressure 97/65 L 92/65 L 96/66 L Pulse Oximetry 98 97 98 05/26/20 08:25 05/26/20 08:45 05/26/20 09:00 Temperature 97.8 F Pulse Rate 99 101 H 107 H Respiratory Rate 26 H 20 Blood Pressure 92/62 L 93/62 L 100/69 Pulse Oximetry 97 99 98 05/26/20 09:45 05/26/20 10:11 05/26/20 13:26 Temperature 97.2 F L 97.6 F Pulse Rate 85 95 80 Respiratory Rate 20 16 13 Blood Pressure 114/65 116/66 163/55 H Pulse Oximetry 100 100 99 05/26/20 13:40 05/26/20 13:55 05/26/20 14:10 Temperature Pulse Rate 79 77 79 Respiratory Rate 18 16 18 Blood Pressure 169/75 H 143/59 H 122/67 Pulse Oximetry 96 99 94 05/26/20 14:25 05/26/20 14:40 05/26/20 14:55 Temperature Pulse Rate 76 76 82 Respiratory Rate 15 18 20 Blood Pressure 140/70 142/68 H 148/64 H Pulse Oximetry 98 99 99 05/26/20 15:05 05/26/20 15:15 05/26/20 15:30 Temperature 98.8 F Pulse Rate 78 78 77 Respiratory Rate 18 18 20 Blood Pressure 157/87 H 156/83 H 157/84 H Pulse Oximetry 98 78 L 97 05/26/20 16:00 05/26/20 16:30 05/26/20 17:00 Temperature Pulse Rate 77 83 88 Respiratory Rate 14 18 16 Blood Pressure 159/80 H 163/81 H 161/86 H Pulse Oximetry 96 97 98 05/26/20 19:10 05/26/20 21:15 05/26/20 21:24 Temperature 98.8 F 99.1 F Pulse Rate 87 88 Respiratory Rate 18 18 Blood Pressure 159/91 H 157/75 H Pulse Oximetry 98 99 99 05/26/20 23:15 05/27/20 01:15 05/27/20 03:00 Temperature 97.8 F 99.1 F 99.1 F Pulse Rate 86 86 82 Respiratory Rate 20 20 20 Blood Pressure 153/74 H 144/63 H 133/59 L Pulse Oximetry 96 97 99 05/27/20 03:30 05/27/20 03:45 05/27/20 04:40 Temperature 98.7 F 98.6 F Pulse Rate 84
[2020-05-27 07:44] LABS: Glucose Point of Care 173 (65-105)
[2020-05-27] MEDS: HYDROcodone/acetaminophen (*CRX) 10-325 MG TABLET 1 TAB PO ×3 (12:03→20:13)
[2020-05-27] MEDS: KETOROLAC 30 MG/ML VIAL (*BKC) IV PUSH ×2 (12:07→17:58)
[2020-05-27] MEDS: PARoxetine 20 MG TABLET 60 MG PO (14:16)
[2020-05-27] MEDS: POTASSIUM CHLORIDE 10 MEQ TABLET.ER PO (14:16)
[2020-05-27] MEDS: SOLIFENACIN 5 MG TABLET 10 MG PO (14:16)
[2020-05-27 14:29] LABS: Basophils Percent Auto 0.2 % (0.2-1.2); Eosinophils Absolute Auto 0.2 K/mm3 (0-0.3); Hemoglobin 8.3 g/dL (12.0-15.0); Immature Granulocyte Percent A 0.6 % (0-0.5); Immature Platelet Fraction Pct 8.9 % (0.9-11.2); Lymphocytes Absolute Auto 1.97 K/mm3 (0.9-3.2); Lymphocytes Percent Auto 11.8 % (18.3-44.2); Mean Corpuscular HGB Conc 34.6 g/dl (32-36); Mean Corpuscular Hemoglobin 31.4 pg (26-34); Mean Corpuscular Volume 90.9 fl (80-100); Mean Platelet Volume 11.6 fl (7.4-10.4); Monocytes Absolute Auto 1.8 K/mm3 (0.1-0.6); Monocytes Percent Auto 10.5 % (2.6-8.5); Neutrophils Absolute Auto 12.7 K/mm3 (1.3-6.7); Neutrophils Percent Auto 75.9 % (45.5-73.1); Platelet Count Result 115 k/mm3 (150-375); Red Blood Count 2.64 M/mm3 (4.2-5.4); Red Cell Distribution Width 14.6 % (11.5-14.5); White Blood Count 16.7 K/mm3 (4.5-10.0)
[2020-05-27 14:49] LABS: Alanine Aminotransferase 12 U/L (4-35); Albumin Level 2.4 g/dL (3.5-5.1); Alkaline Phosphatase 48 U/L (38-126); Anion Gap 1 mmol/L (8-16); Aspartate Amino Transferase 20 U/L (14-36); Bilirubin,Total 0.5 mg/dL (0.2-1.3); Blood Urea Nitrogen 7 mg/dL (7-17); Calcium 7.6 mg/dL (8.4-10.2); Carbon Dioxide 30 mmol/L (22-30); Chloride 105 mmol/L (98-107); Estimated CRCL calculation 127 ml/min; Estimated Glomerular Filt Rate > 60; Glucose 162 mg/dL (65-105); Potassium 3.7 mmol/L (3.4-5.0); Sodium 136 mmol/L (137-145)
[2020-05-27 17:01] LABS: Glucose Point of Care 144 (65-105)
[2020-05-27] MEDS: MAGNESIUM HYDROXIDE SUSP 30 ML UDC PO (20:29)
[2020-05-28 00:20] VITALS: BP 121/61; PULSE 81; RESP 15; TEMP 37.3; O2SAT 95
[2020-05-28] MEDS: SIMETHICONE 80 MG TAB.CHEW PO ×2 (00:22→04:36)
[2020-05-28] MEDS: HYDROcodone/acetaminophen (*CRX) 10-325 MG TABLET 1 TAB PO ×3 (00:22→08:03)
[2020-05-28] MEDS: KETOROLAC 30 MG/ML VIAL (*BKC) IV PUSH ×2 (00:29→08:04)
[2020-05-28 04:30] VITALS: BP 118/64; PULSE 79; RESP 14; TEMP 37.2; O2SAT 91
[2020-05-28 05:02] LABS: Basophils Absolute Auto 0.1 K/mm3 (0.0-0.1); Basophils Percent Auto 0.4 % (0.2-1.2); Eosinophils Absolute Auto 0.4 K/mm3 (0-0.3); Eosinophils Percent Auto 2.3 % (0-4.4); Hematocrit 22.6 % (37.0-47.0); Hemoglobin 7.7 g/dL (12.0-15.0); Immature Granulocyte Absolute 0.12 K/mm3 (0.00-0.031); Immature Granulocyte Percent A 0.7 % (0-0.5); Immature Platelet Fraction Pct 7.1 % (0.9-11.2); Lymphocytes Absolute Auto 2.79 K/mm3 (0.9-3.2); Mean Corpuscular HGB Conc 34.1 g/dl (32-36); Mean Corpuscular Hemoglobin 30.6 pg (26-34); Mean Corpuscular Volume 89.7 fl (80-100); Mean Platelet Volume 11.6 fl (7.4-10.4); Monocytes Absolute Auto 1.7 K/mm3 (0.1-0.6); Monocytes Percent Auto 10.3 % (2.6-8.5); Neutrophils Absolute Auto 11.4 K/mm3 (1.3-6.7); Neutrophils Percent Auto 69.3 % (45.5-73.1); Platelet Count Result 114 k/mm3 (150-375); Red Blood Count 2.52 M/mm3 (4.2-5.4); Red Cell Distribution Width 14.3 % (11.5-14.5); White Blood Count 16.4 K/mm3 (4.5-10.0)
[2020-05-28 07:40] VITALS: BP 124/86; PULSE 78; RESP 16; TEMP 37.3; O2SAT 93
--- NOTE | 2020-05-28 07:48 | PM.GYNPNOP ---
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 From a total laparoscopic hysterectomy and postoperative day 2 from exploratory laparotomy. She had postoperative hemorrhage. She was transfused 4 units of packed red blood cells and has hemoglobin of 7.7 at this time. She is hemodynamically stable at this time. She is eager to be discharged. She is tolerating p.o., passing flatus. She will be discharged home. She was given precautions. She knows how to reach me directly for emergencies. Postoperative Procedures: Procedures Operation Date: 05/25/20 09:00 Actual Procedures Side Surgeon p Total Laparoscopic Hysterectomy, Bilateral Salpingo-Oophorectomy Marixa Meza MD Operation Date: 05/26/20 11:00 Actual Procedures Side Surgeon p Exploratory Laparotomy with cauterization of pelvic bleeding Not Applicable Marixa Meza MD Time Spent With Patient Time: Total time spent is greater than 50% in coordination of care (as documented) at patient's floor/unit and/or counseling patient: Time with patient: 15 - 25 minutes LOCAL TELEPHONE OPERATOR- PN:Subj Post-Op Subjective Date/time seen: 05/28/20 07:48 pain is well controlled, patient is tolerating p.o., she is ambulating, she is voiding and passing flatus. Denies nausea, vomiting, fever, chills. She denies any chest pain. Exam Const: General: healthy appearing, comfortable and no acute distress Resp: Auscultation: clear to auscultation bilaterally, no rales, no rhonchi and no wheezes Cardio: Rate: regular rate Heart sounds: no click, no murmurs and no rubs GI: Inspection: non-distended Auscultation: normal bowel sounds Other: Incisions are clean dry and intact Extrem: General: normal to inspection, no pedal edema and no calf tenderness LOCAL TELEPHONE OPERATOR - PN: Obj Data Vital Signs Vital Signs: Vital Signs - 24 hr 05/27/20 08:05 05/27/20 09:05 05/27/20 09:29 Temperature 98.8 F 98.1 F 98.0 F Pulse Rate 80 81 77 Respiratory Rate 18 18 18 Blood Pressure 107/51 L 110/55 L 113/54 L Pulse Oximetry 97 99 98 05/27/20 09:44 05/27/20 10:44 05/27/20 11:30 Temperature 98.0 F 98.7 F Pulse Rate 80 74 Respiratory Rate 18 18 Blood Pressure 110/55 L 125/69 Pulse Oximetry 97 97 98 05/27/20 11:33 05/27/20 12:00 05/27/20 16:20 Temperature 98.8 F 99.0 F Pulse Rate 75 76 Respiratory Rate 18 18 Blood Pressure 113/59 L 137/70 Pulse Oximetry 99 99 97 05/27/20 20:15 05/28/20 00:20 05/28/20 04:30 Temperature 99.0 F 99.2 F 98.9 F Pulse Rate 78 81 79 Respiratory Rate 15 15 14 Blood Pressure 132/72 121/61 118/64 Pulse Oximetry 98 95 91 Intake/Output Intake/Output: Intake & Output 05/25/20 05/26/20 05/27/20 05/28/20 23:59 23:59 23:59 23:59 Intake Total 200 1140 5702 Output Total 230 359 3486 Balance -266 650 6655 Meds/Results Medications: Active Medications Generic Name Dose Route Start Last Admin Trade Name Freq PRN Reason Stop Dose Admin Hydrocodone Bitart/Acetaminophen 1 tab 05/25/20 13:20 05/27/20 07:09 Hydrocodone/Acetaminophen (*Crx) 5-325 Mg Tablet PO 1 tab Q3H PRN Administration Pain Rated 5 or Less Hydrocodone Bitart/Acetaminophen 1 tab 05/26/20 15:02 05/27/20 07:43 Hydrocodone/Acetaminophen (*Crx) 5-325 Mg Tablet PO 1 tab PRN PRN Administration Back Pain Hydrocodone Bitart/Acetaminophen 1 tab 05/27/20 07:33 05/28/20 04:36 Hydrocodone/Acetaminophen (*Crx) 10-325 Mg Tablet PO 1 tab Q4H PRN Administration Pain Rated 7-10 Amlodipine Besylate 10 mg 05/27/20 09:00 05/27/20 13:21 Amlodipine Besylate 5 Mg Tablet PO Not Given QAM GLORIA Ascorbic Acid 500 mg 05/27/20 09:00 05/27/20 13:21 Ascorbic Acid 500 Mg Tablet PO Not Given DAILY GLORIA Aspirin 81 mg 05/27/20 09:00 05/27/20 1
--- NOTE | 2020-05-28 07:52 | PM.DS ---
DS: Admitting Diagnosis Admitting Diagnosis Admitting Diagnosis: Uterine Leiomyoma DS: Discharge Diagnosis Discharge Diagnosis (1) Postoperative hemorrhage: Status: Acute (2) Encounter for postoperative care: Code(s): Z48.89 - Encounter for other specified surgical aftercare Status: Acute (3) Fibroids: Code(s): D21.9 - Benign neoplasm of connective and other soft tissue, unspecified Status: Acute (4) Menorrhagia: Code(s): N92.0 - Excessive and frequent menstruation with regular cycle Status: Acute DS: Summary Hospital Course Reason for hospitalization: Total laparoscopic hysterectomy, bilateral salpingo-oophorectomy for severe menorrhagia and fibroids Hospital Course: Patient's hospital course was for remarkable for postoperative hemorrhage. She had a outpatient surgery for fibroids and menorrhagia. She had total laparoscopic hysterectomy that was complicated by postoperative hemorrhage. Patient was given blood and reoperated on. An active bleeding area was found of a small vessel in the pelvis. He was ligated. This was a laparotomy. She is recovering from a laparotomy. Her course since that time has been unremarkable. Her blood sugars have been reasonably well controlled and her hypertension is well controlled. She is to be discharged today on postoperative day 2. From a laparotomy. She is tolerating p.o., passing flatus, afebrile. She is voiding. Status at Discharge Functional status at discharge: independent ambulation Time Spent with Patient Time attestation: Total time spent providing and/or coordinating discharge services: Time spent: Less than 30 minutes DS: Data Data Completed and Pending Completed studies during hospitalization: Pending at discharge 05/25/20 11:02 Surgical [PTH] Routine Labs on day of discharge: Labs from last 24 hours 05/28/20 05/27/20 05/27/20 04:46 16:58 14:15 WBC 16.4 H RBC 2.52 L Hgb 7.7 L Hct 22.6 L MCV 89.7 MCH 30.6 MCHC 34.1 RDW 14.3 Plt Count 114 L MPV 11.6 H Immature Gran % (Auto) 0.7 H Neut % (Auto) 69.3 Lymph % (Auto) 17.0 L Morton % (Auto) 10.3 H Eos % (Auto) 2.3 Baso % (Auto) 0.4 Lymph # (Auto) 2.79 Morton # (Auto) 1.7 H Eos # (Auto) 0.4 H Baso # (Auto) 0.1 Abs Immat Gran (auto) 0.12 H Absolute Neuts (auto) 11.4 H Absolute Nucleated RBC 0.0 Nucleated RBC % 0.0 % Immature Plt Fraction 7.1 Sodium 136 L Potassium 3.7 Chloride 105 Carbon Dioxide 30 Anion Gap 1 L BUN 7 D Creatinine 0.50 L Estim Creat Clear Calc 127 Estimated GFR > 60 Glucose 162 H POC Capillary Glucose 144 H Calcium 7.6 L Total Bilirubin 0.5 AST 20 ALT 12 Alkaline Phosphatase 48 Total Protein 5.0 L Albumin 2.4 L Blood Type Rho(D) Type Antibody Screen Crossmatch 05/27/20 05/26/20 14:15 08:29 WBC 16.7 H RBC 2.64 L Hgb 8.3 L Hct 24.0 L MCV 90.9 MCH 31.4 MCHC 34.6 RDW 14.6 H Plt Count 115 L MPV 11.6 H Immature Gran % (Auto) 0.6 H Neut % (Auto) 75.9 H Lymph % (Auto) 11.8 L Morton % (Auto) 10.5 H Eos % (Auto) 1.0 Baso % (Auto) 0.2 Lymph # (Auto) 1.97 Morton # (Auto) 1.8 H Eos # (Auto) 0.2 Baso # (Auto) 0.0 Abs Immat Gran (auto) 0.10 H Absolute Neuts (auto) 12.7 H Absolute Nucleated RBC 0.0 Nucleated RBC % 0.0 % Immature Plt Fraction 8.9 Sodium Potassium Chloride Carbon Dioxide Anion Gap BUN Creatinine Estim Creat Clear Calc Estimated GFR Glucose POC Capillary Glucose Calcium Total Bilirubin AST ALT Alkaline Phosphatase Total Protein Albumin Blood Type Cancelled Rho(D) Type Cancelled Antibody Screen Cancelled Crossmatch See Detail Discharge Plan Discharge Discharging Clinician: Marixa Meza Patient Disposition: Home, Self-Care Activity: pelvic rest Diet: regular
[2020-05-28 08:18] LABS: Glucose Point of Care 114 (65-105)
[2020-05-28] MEDS: ASPIRIN 81 MG CHEWABLE TABLET PO (09:16)
[2020-05-28] MEDS: CHOLECALCIFEROL 400 UNITS TABLET (VIT D) PO (09:17)
[2020-05-28] MEDS: POTASSIUM CHLORIDE 10 MEQ TABLET.ER PO (09:18)
[2020-05-28] MEDS: MAGNESIUM OXIDE 400 MG TABLET PO (09:19)
[2020-05-28] MEDS: LOSARTAN POTASSIUM 50 MG TABLET PO (09:19)
[2020-05-28] MEDS: amLODIPine BESYLATE 5 MG TABLET 10 MG PO (09:20)
[2020-05-28] MEDS: SOLIFENACIN 5 MG TABLET 10 MG PO (09:20)
[2020-05-28] MEDS: PARoxetine 20 MG TABLET 60 MG PO (09:21)
[2020-05-28] MEDS: ASCORBIC ACID 500 MG TABLET PO (09:22)
[2020-05-28 09:58] LABS: Glucose Point of Care 196 (65-105)
== END 2020-05-28 10:12 | disposition home or self-care (01) | DRG 793 ==
LOC: ANHLDR 07-07 10:14 → ANHSURGERY 07-07 10:15 → ANHOB2 07-07 10:16
PROVIDERS: Admitting Provider Obstetrics & Gynecology; PCP Physician Assistant; Visit Provider Obstetrics & Gynecology
PROC: 0UT9FZZ Resection of Uterus, Via Natural or Artificial Opening With Percutaneous Endoscopic Assistance (ICD-10-PCS; principal; 2020-05-25 09:00)
PROC: 0W3J0ZZ Control Bleeding in Pelvic Cavity, Open Approach (ICD-10-PCS; CPT 49320; principal; 2020-05-26 11:00)
DX: N99.820 Postprocedural hemorrhage of a genitourinary system organ or structure following a genitourinary system procedure (principal); K66.1 Hemoperitoneum; I95.81 Postprocedural hypotension; D25.9 Leiomyoma of uterus, unspecified; N92.0 Excessive and frequent menstruation with regular cycle; D62 Acute posthemorrhagic anemia; F41.8 Other specified anxiety disorders; J44.9 Chronic obstructive pulmonary disease, unspecified; I10 Essential (primary) hypertension; E11.9 Type 2 diabetes mellitus without complications; F17.210 Nicotine dependence, cigarettes, uncomplicated; E66.9 Obesity, unspecified; Z68.31 Body mass index [BMI] 31.0-31.9, adult; Z86.73 Personal history of transient ischemic attack (TIA), and cerebral infarction without residual deficits; Z98.1 Arthrodesis status
CPT/HCPCS: 36415; 36430; 74177; 80053; 84132; 85014; 85018; 85025; 85027; 85055; 85610; 85730; 86900; 86901; 86920; 88307; 99199; A9270; J0690; J1100; J1170; J1815; J1885; J2250; J2405; J2704; J2710; J3010; J7030; J7120; P9016; Q9967

== ENCOUNTER 2024-12-29 20:35 | Emergency (ER) | payer OTHER, SELFPAY ==
--- NOTE | ~2024-12-29 | XR_ITS ---
XR chest 2V Ordering provider: Chandni Wick History: 49 years Female with . CHEST PAIN, sob. . Comparison: None. FINDINGS: MEDIASTINUM: The cardiac silhouette is not enlarged. Congestive rafaela. LUNGS: No infiltrates, effusions or pneumothorax. Prominent bronchovascular markings. OTHER: No free air under the diaphragm. Degenerative changes of the spine. Old compression fractures in the lower thoracic area. If clinically suspicious MRI is advised. Calcified granuloma seen in the area of the liver. IMPRESSION: No acute cardiopulmonary pathology. Reviewed, dictated and finalized at location A.
--- NOTE | 2024-12-29 20:37 | ECG_ITS ---
Test Date: 2024-12-29 20:42:36 Measurements Intervals [place] Rate: 78 P: -9 AR: 145 QRS: 58 QRSD: 88 T: 50 QT: 385 QTc: 441 Interpretive Statements SINUS RHYTHM No previous ECG available for comparison Electronically Signed On 12-30-2024 15:53:44 CDT by Filiberto Kaur M.D.
[2024-12-29 20:44] VITALS: BP 188/84; PULSE 79; RESP 18; TEMP 36.8; O2SAT 100
[2024-12-29 21:41] LABS: Hematocrit 44.6 % (37.0-47.0); Hemoglobin 15.0 g/dL (12.0-15.0); Immature Granulocyte Percent A 0.3 % (0-0.5); Lymphocytes Absolute Auto 3.11 K/mm3 (0.9-3.2); Mean Corpuscular HGB Conc 33.6 g/dl (32-36); Mean Corpuscular Hemoglobin 31.1 pg (26-34); Mean Corpuscular Volume 92.3 fl (80-100); Nucleated Red Blood Cells Absolute Auto 0.000 K/mm3 (0.0-0.012); Nucleated Red Blood Cells Perc 0.0 % (0.0-0.2); Platelet Count Result 190 k/mm3 (150-375); Red Blood Count 4.83 M/mm3 (4.2-5.4); White Blood Count 10.7 K/mm3 (4.5-10.0)
[2024-12-29 21:54] LABS: Alanine Aminotransferase 22 U/L (6-35); Albumin Level 4.2 g/dL (3.5-5.1); Alkaline Phosphatase 94 U/L (38-126); Anion Gap 6 mmol/L (4-12); Aspartate Amino Transferase 31 U/L (14-36); Bilirubin,Total 0.3 mg/dL (0.2-1.3); Blood Urea Nitrogen 8 mg/dL (7-17); Calcium 9.3 mg/dL (8.4-10.2); Carbon Dioxide 30 mmol/L (22-30); Chloride 100 mmol/L (98-107); Estimated CRCL calculation 112 ml/min; Estimated Glomerular Filt Rate > 60; Glucose 187 mg/dL (65-110); Lipase 47 U/L (23-300); Potassium 3.9 mmol/L (3.4-5.0); Sodium 136 mmol/L (137-145); Total Protein 7.1 g/dL (6.3-8.2)
[2024-12-29 22:04] LABS: INR 1.0; Partial Thromboplastin Time 27.6 Seconds (22.3-36.8); Prothrombin Time 13.1 Seconds (11.1-14.7)
[2024-12-29 22:06] LABS: Troponin I < 0.012 ng/mL (0.000-0.034)
[2024-12-29 22:55] VITALS: PULSE 68
--- OUTSIDE RECORDS SUMMARY | 2024-12-29 23:15 | XMS_ITS | Clinical Summary ---
Author Organization [facility] Address [address] [place] [id number] Care Team Providers Care Panel Machine Setter Name Role Phone Unavailable Primary Care Provider Unavailabl e Social History Tobacco Use Types Packs/Day Years Used Date Smoking Tobacco: Never Assessed Comments Unknown Sex and Gender Information Value Date Recorded Sex Assigned at Not on file Legal Sex Female 6:56 PM CDT Gender Identity Not on file Sexual Orientation Not on file Plan of Treatment Health Maintenance Due Date Last Done Comments Cervical Cancer Screening Pa p Smear (Age 30 to 64) Every 3 Years 1973 Colorectal Cancer Screening Colonoscopy (10 Years) 1973 Annual Physical 1976 Hepatitis C 11/30/1991 DTaP, Tdap and Td Vaccines ( 1 - Tdap) 1992 Hepatitis B Vaccines (1 of 3 - 19+ 3-dose series) 1992 Cervical Cancer Screening Pa p with HPV Testing (Age 30 to 64) Every 5 Years 11/30/2003 Cervical Cancer Screening with HPV 11/30/2003 Mammogram Screening 2013 Pneumococcal Vaccine: 50+ Ye ars (1 of 1 - PCV) 11/30/2023 Zoster Vaccines (1 of 2) 11/30/2023 COVID-19 Vaccine (2023-2 5 season) 2024 Meningococcal B Vaccine Aged Out No l onger eligible based on patient's age to complete this topic Meningococcal Vaccine Aged Out No yudi kurt eligible based on patient's age to complete this topic RSV Immunizations Under 20 Months Aged Out No longer eligible based on patient's age to complete this topic
--- OUTSIDE RECORDS SUMMARY | 2024-12-29 23:15 | XMS_ITS | Encounter Summary ---
Author Organization [facility] Address 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 Gender Identity Not on file Sexual Orientation Not on file documented as of this encounter Plan of Treatment Not on file documented as of this encounter Procedures Procedure Name Priority Date/Time Associated Diagnosis Comments POC , URINE Routine 12/06/2004 10:56 AM CDT HEMOGLOBIN AND HEMATOCRIT Routine 12/01/2004 7:46 AM CDT BASIC METABOLIC PANEL Routine 12/01/2004 7:46 AM CDT documented in this encounter Results * POC , URINE (12/06/2004 10:56 AM CDT) HCG QUAL URINE Negative Negative INTER FACE SYSTEM SPECIFIC GRAVITY UA 1.030 1.001 - 1.035 INTERFACE SYSTEM 12/06/2004 10:5 6 AM CDT us Romel Lockhart MD POINT OF CARE TESTING Final R esult INTERFACE SYSTEM Refer to clinic/hospital department * HEMOGLOBIN AND HEMATOCRIT (12/01/2004 7:46 AM CDT) HEMOGLOBIN 14.5 11.8 - 14.8 g/dL INTERFACE SYSTEM HEMATOCRIT 43.6 35.5 - 44.0 % INTERFACE SYSTEM 12/01/2004 7:46 AM CDT Romel Lockhart MD HEMATOLOGY ORDERABLES Final R esult Performing Organization Address [facility] Phone Number INTERFACE SYSTEM Refer to clinic/hospital department * BASIC METABOLIC PANEL (12/01/2004 7:46 AM CDT) GLUCOSE 106 65 - 109 mg/dL INTERFACE SYSTEM CREATININE 0.7 0.4 - 1.2 mg/dL INTERFACE SYSTEM CALCIUM 9.0 8.6 - 10.2 mg/dL INTERFACE SYSTEM BUN 9 6 - 20 mg/dL INTERFACE SYSTEM SODIUM 140 135 - 145 mmol/L INTERFACE SYSTEM POTASSIUM 3.5 3.5 - 4.9 mmol/L INTERFACE SYSTEM CHLORIDE 103 96 - 108 mmol/L INTERFACE SYSTEM CO2 26 22 - 30 mmol/L INTERFACE SYSTEM 12/01/2004 7:46 AM CDT us Romel Lockhart MD CHEMISTRY ORDERABLES Final Re sult Performing Organization Address [facility] Phone Number INTERFACE SYSTEM Refer to clinic/hospital department documented in this encounter Visit Diagnoses Diagnosis Displacement of lumbar intervertebral disc without myelopathy- Primary documented in this encounter
--- OUTSIDE RECORDS SUMMARY | 2024-12-29 23:15 | XMS_ITS | Clinical Summary ---
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
[2024-12-30 00:04] VITALS: BP 182/79; PULSE 69; RESP 20; O2SAT 94
--- NOTE | 2024-12-30 00:07 | ED_ITS ---
HPI - Chest Pain General Chief Complaint: Chest Pain Stated Complaint: HTN, SOB, shaky, cp Time Seen by Provider: 12/29/24 23:01 History of Present Illness HPI narrative: Patient is a 49-year-old female who presents the emergency department this evening with multiple complaints. States that she has been having an elevated blood pressure, chest pain since Monday and headache and some shortness of breath. Admits symptoms started on Monday and have not improved. She states that she has been taking her blood pressure medications as prescribed and has not skipped any doses. Denies any recent illness, fevers or chills. No additional symptoms or concerns at this time. Related Data Home Medications ?Medication ?Instructions ?Recorded ?Confirmed ?Last Taken ?Type amlodipine 10 mg tablet 10 mg PO DAILY 07/01/19 07/01/24 05/24/20 History hydrocodone 5 mg-acetaminophen 325 1 tablet PO PRN PRN Back Pain 07/01/19 07/01/24 05/24/20 History mg tablet ([place]) insulin human U-100 NPH-regulr 10 unit subcut DAILY 07/01/19 07/01/24 05/24/20 History 70-30 mix 100 unit/mL subcutaneous susp (Humulin 70/30 U-100 Insulin) losartan 50 mg tablet 50 mg PO DAILY 07/01/19 07/01/24 05/24/20 History paroxetine HCl 20 mg tablet (Paxil) 60 mg PO DAILY 07/01/19 07/01/24 05/24/20 History ascorbic acid (vitamin C) 500 mg 500 mg PO DAILY 01/19/20 07/01/24 05/22/20 History capsule cholecalciferol (vitamin D3) 10 10 mcg PO DAILY 01/19/20 07/01/24 05/22/20 History mcg (400 unit) chewable tablet (Kids Vitamin D3) magnesium oxide 400 mg (241.3 mg 400 mg PO DAILY 01/19/20 07/01/24 05/22/20 History magnesium) tablet multivit,Ca,apn-aqiq-MD-guarana-caff 1 tablet PO DAILY 01/19/20 07/01/24 05/22/20 History 9 mg iron-400 mcg-200 mg tablet ([employer]) potassium chloride 10 mEq 10 meq PO DAILY 01/19/20 07/01/24 05/22/20 History tablet,extended release solifenacin 10 mg tablet 10 mg PO DAILY 01/19/20 07/01/24 05/24/20 History Allergies Allergy/AdvReac Type Severity Reaction Status Date / Time No Known Allergies Allergy Verified 07/01/24 09:21 Review of Systems 2 Review of Systems: All systems are reviewed and are negative unless stated otherwise in the HPI. [facility] Past Medical History Medical History Obesity Chronic narcotic use Depression Anxiety COPD (chronic obstructive pulmonary disease) TIA (transient ischemic attack) Tobacco abuse Systolic ejection murmur Hypertension associated with diabetes Mixed anxiety depressive disorder Essential hypertension Heart murmur Type II diabetes mellitus Surgical History Surgical History History of X2 History of lumbar fusion H/O dilation and curettage Family History Family History Father Hypertension Murmur Pacemaker Mother Seizure Social History Social History Smoking packs per day: 1 Smoking cigarettes per day: 20.0 Years smoked: 25 Smoking pack-years: 25.00 Smoking status: Current every day smoker Tobacco type: cigarettes Alcohol intake: current Substance use: never Living arrangements: with family Gender identity (if verbalized by the patient): Female Sexual Orientation (if Verbalized by the Patient): Straight or Heterosexual Spiritual care concerns: No Agree to blood products: Yes Exam 2 Narrative: General: Alert, awake, afebrile, in no acute distress. HEENT: PERRL, no rhinorrhea, no post nasal drip, oropharynx clear. Neck: Trachea midline, no JVD, no lymphadenopathy. Cardiovascular: Regular rate and rhythm, no murmurs, rubs or gallops, no peripheral edema. Respiratory: Clear to auscultation bilaterally, no tachypnea, no wheezing, no rhonchi, no rubs, no respiratory distress. Abdomen: Soft, nontender, nondistended, no rebound, no guarding, no peritoneal signs. Musculoskeletal: No joint swelling or deformity, normal muscle tone. Skin: No rashes or petechia, no signs of infection. Psychiatric: Alert and oriented, normal behavior and judgment for situation. Neurological: Alert and oriented to person, place, and time. Follows all commands. No focal deficits, speech is clear and fluent. Course Vital Signs Vital signs: Vital Signs Temperature 98.3 F 12/29/24 20:44 Pulse Rate 79 12/29/24 20:44 Respiratory Rate 18 12/29/24 20:44 Blood Pressure 188/84 H 12/29/24 20:44 Pulse Oximetry 100 12/29/24 20:44 Oxygen Delivery Room Air 12/29/24 20:44 Temperature 98.3 F 12/29/24 20:44 Pulse Rate 68 12/30/24 00:31 Respiratory Rate 13 12/30/24 00:31 Blood Pressure 156/70 H 12/30/24 00:31 Pulse Oximetry 96 12/30/24 00:31 Oxygen Delivery Room Air 12/29/24 20:44 MDM - Chest Pain MDM Narrative Medical decision making narrative: The patient was evaluated by myself in the emergency department. History is obtained from patient who is an independent historian and physical exam was performed. External medical records were reviewed at this time. IV was established and pertinent tests were ordered. Patient's blood pressure did remain persistently elevated in the 180s systolic in the emergency department and this time she was administered 2 mg of IV hydralazine. Repeat blood pressure 156/70 mmHg. EKG was obtained which revealed sinus rhythm rate of 78 beats per Min. No ST changes, T wave inversions or evidence of acute ischemia. EKG was independently interpreted by me and is currently pending official cardiology read. Laboratory results obtained revealing no acute process. Troponin negative Imaging studies obtained included CXR which was independently interpreted by me revealing no acute cardiopulmonary process, which is pending final radiology interpretation. Differential diagnosis considerations include hypertensive urgency versus emergency, acute viral syndrome, infectious process such as pneumonia, acute coronary syndrome. Comorbidities impacting this visit include history of hypertension. Patient is on 3 different blood pressure medications. I have evaluated and discussed social determinants of health with the patient that could potentially impact subsequent diagnosis and treatment plans. On repeat assessment of the patient, reevaluation revealed that the patient is doing well and is in no acute distress. Patient symptoms have improved since she arrived to our emergency department. Repeat vital signs were all reviewed and noted to be stable. Differential diagnosis and treatment plan were discussed with the patient at bedside. Patient agrees with discussion and after shared medical decision making agrees with discharge. All questions were answered to the patient's satisfaction. Patient will follow up with her PCP in 3-5 days. Instructed to keep a blood pressure log as she may need to have her blood pressure medications were adjusted by her PCP. Patient was provided with strict return precautions and instructed to return to the emergency department if any new or worsening symptoms develop. The patient was discharged in stable condition. Lab Data 12/29/24 21:37 12/29/24 21:36 Labs: Lab Results 12/29/24 12/29/24 Range/Units 21:36 21:37 WBC 10.7 H (4.5-10.0) K/mm3 RBC 4.83 (4.2-5.4) M/mm3 Hgb 15.0 D (12.0-15.0) g/dL Hct 44.6 (37.0-47.0) % MCV 92.3 (80-100) fl MCH 31.1 (26-34) pg MCHC 33.6 (32-36) g/dl RDW 13.5 (11.5-14.5) % Plt Count 190 D (150-375) k/mm3 MPV 11.3 H (7.4-10.4) fl Immature Gran % (Auto) 0.3 (0-0.5) % Neut % (Auto) 58.3 (45.5-73.1) % Lymph % (Auto) 29.2 (18.3-44.2) % [place] % (Auto) 10.0 H (2.6-8.5) % Eos % (Auto) 1.6 (0-4.4) % Baso % (Auto) 0.6 (0.2-1.2) % Lymph # (Auto) 3.11 (0.9-3.2) K/mm3 [place] # (Auto) 1.1 H (0.1-0.6) K/mm3 Eos # (Auto) 0.2 (0-0.3) K/mm3 Baso # (Auto) 0.1 (0.0-0.1) K/mm3 Abs Immat Gran (auto) 0.03 (0.00-0.031) K/mm3 Absolute Neuts (auto) 6.2 (1.3-6.7) K/mm3 Absolute Nucleated RBC 0.000 (0.0-0.012) K/mm3 Nucleated RBC % 0.0 (0.0-0.2) % PT 13.1 (11.1-14.7) Seconds INR 1.0 APTT 27.6 (22.3-36.8) Seconds Sodium 136 L (137-145) mmol/L Potassium 3.9 (3.4-5.0) mmol/L Chloride 100 (98-107) mmol/L Carbon Dioxide 30 (22-30) mmol/L Anion Gap 6 (4-12) mmol/L BUN 8 (7-17) mg/dL Creatinine 0.44 L (0.7-1.0) mg/dL Estim Creat Clear Calc 112 ml/min Estimated GFR > 60 (59 - ) Glucose 187 H (65-110) mg/dL Calcium 9.3 (8.4-10.2) mg/dL Total Bilirubin 0.3 (0.2-1.3) mg/dL AST 31 (14-36) U/L ALT 22 (6-35) U/L Alkaline Phosphatase 94 (38-126) U/L Troponin I < 0.012 (0.000-0.034) ng/mL Total Protein 7.1 (6.3-8.2) g/dL Albumin 4.2 (3.5-5.1) g/dL Lipase 47 (23-300) U/L Discharge Plan Discharge Clinical Impression: Hypertension Chest pain Qualifiers: Chest pain type: other chest pain Qualified Code(s): R07.89 - Other chest pain Patient Disposition: Home Condition: Improved Instructions: Antibiotic Form, Chest Pain (ED), Hypertension (ED) Additional Instructions: Please follow-up with family doctor within the next 3-5 days. Return emergency department if any new or worsening symptoms develop Patient Language: Nigerian Prescriptions: No Action Humulin 70/30 U-100 Insulin 100 unit/mL (70-30) Suspension 10 unit SUBCUT DAILY Rx Instructions: PT TAKES IN AFTERNOON losartan 50 mg Tablet 50 mg PO DAILY amlodipine 10 mg Tablet 10 mg PO DAILY paroxetine HCl [Paxil] 20 mg Tablet 60 mg PO DAILY hydrocodone-acetaminophen [[place]] 5-325 mg Tablet 1 tablet PO PRN PRN (Reason: Back Pain) aspirin [Children's Aspirin] 81 mg Tablet,Chewable 81 mg PO QAM 30 Days Qty: 30 0RF potassium chloride 10 mEq Tablet Extended Release 10 meq PO DAILY magnesium oxide 400 mg (241.3 mg magnesium) Tablet 400 mg PO DAILY solifenacin 10 mg Tablet 10 mg PO DAILY cholecalciferol (vitamin D3) [Kids Vitamin D3] 10 mcg (400 unit) Tablet,Chewable 10 mcg PO DAILY One-A-[employer] 9 mg iron-400 mcg-200 mg Tablet 1 tablet PO DAILY ascorbic acid (vitamin C) 500 mg Capsule 500 mg PO DAILY hydrocodone-acetaminophen 5-325 mg tablet 1 - 2 tablet PO Q4H PRN (Reason: pain) Qty: 25 0RF Follow-up/Referrals: Bull,Lilian Almendarez NP [Primary Care Provider] - 3 Days Stand Alone Forms: Work/School Release IP Time of Disposition: 00:09
[2024-12-30 00:31] VITALS: BP 156/70; PULSE 68; RESP 13; O2SAT 96
--- NOTE | 2024-12-30 00:36 | ECG_ITS ---
Test Date: 2024-12-30 00:10:48 Measurements Intervals [place] Rate: 66 P: -6 UT: 144 QRS: 69 QRSD: 88 T: 68 QT: 473 QTc: 499 Interpretive Statements SINUS RHYTHM PROLONGED QT INTERVAL Compared to ECG 12/29/2024 20:42:36 Prolonged QT interval now present Electronically Signed On 12-30-2024 15:54:15 CDT by Filiberto Kaur M.D.
[2024-12-30 00:58] VITALS: BP 156/70; PULSE 68; RESP 13; O2SAT 96
== END 2024-12-30 01:20 | disposition home or self-care (01) ==
PROVIDERS: Emergency Provider Emergency Medicine; PCP Nurse Practitioner Family
DX: I15.2 Hypertension secondary to endocrine disorders (principal); R07.89 Other chest pain; E11.9 Type 2 diabetes mellitus without complications; J44.9 Chronic obstructive pulmonary disease, unspecified; F41.8 Other specified anxiety disorders; F17.210 Nicotine dependence, cigarettes, uncomplicated; Z86.73 Personal history of transient ischemic attack (TIA), and cerebral infarction without residual deficits; Z98.1 Arthrodesis status; Z79.4 Long term (current) use of insulin; Z79.82 Long term (current) use of aspirin; Z79.899 Other long term (current) drug therapy; R94.31 Abnormal electrocardiogram [ECG] [EKG]
CPT/HCPCS: 36415; 71046; 80053; 83690; 84484; 85025; 85610; 85730; 93005; 96374; 99284; J0360

== ENCOUNTER 2025-01-31 07:46 | Outpatient (CLI) | payer OTHER, MEDICAID, SELFPAY ==
--- NOTE | ~2025-01-31 | MR_ITS ---
MRI of the lumbar spine Clinical History: Lumbar disc disease Technique: Axial T2-weighted images, and sagittal T1-weighted, T2-weighted, and T2 fat-sat images wer e acquired. Findings: There is no acute fracture or subluxation of the lumbar spine. There is posterior and inter body fusion from L5 through S1. No suspicious bone marrow signal abnormality seen. At L1-L2, there is no disc bulge or herniation. No spinal canal stenosis or neural foraminal narrowin g. At L2-L3, there is no disc bulge or herniation. There is moderate facet arthropathy. No central canal stenosis or neural foraminal narrowing. At L3-L4, there is mild disc bulge with advanced facet arthropathy. No central canal stenosis. There is moderate to advanced left neural foraminal narrowing, and moderate right neural foraminal narrowin g. At L4-L5, there is mild disc bulge with advanced facet arthropathy. No central canal stenosis or defi nite neural foraminal narrowing. At L5-S1, there is no canal stenosis. Probable posterior decompression. Possible significant right ne ural foraminal narrowing. Paravertebral soft tissues are unremarkable. Impression: Postoperative change at L5-S1, as above. Neural foraminal narrowing at L3-L4, as detailed above. Reviewed, dictated and finalized at location . Impression: Postoperative change at L5-S1, as above. Neural foraminal narrowing at L3-L4, as detailed above.
== END 2025-01-31 07:47 | disposition home or self-care (01) ==
LOC: MICIMG 07:47
PROVIDERS: PCP Nurse Practitioner Family; Visit Provider Nurse Practitioner Family
DX: M51.9 Unspecified thoracic, thoracolumbar and lumbosacral intervertebral disc disorder (principal)
CPT/HCPCS: 72148

== ENCOUNTER 2025-02-20 10:43 | Emergency (ER) | payer MEDICAID, SELFPAY ==
--- NOTE | ~2025-02-20 | CT_ITS ---
EXAM: CT facial bones w con - 02/20/2025 12:45 CDT History: 49 years old Female with dental abscess COMPARISON: None available. PROCEDURE: CT maxillofacial without contrast. Axial, sagittal and coronal reformatted planes were evaluated. Automatic exposure control was used for this study. FINDINGS: BONES: No evidence of nasal, periorbital, zygomatic, maxillary, pterygoid or mandible fracture. The temporomandibular joints are intact. PARANASAL SINUSES and MASTOID AIR CELLS: Periapical lucency around the right superior pole of the concerning for periodontitis. Mild mucosal thickening of the right maxillary sinus, suggestive of nonobstructive acute sinusitis, likely odontogenic in origin. SOFT TISSUES: Diffuse skin thickening, soft tissue/muscular swelling, fat stranding in the right neck, right cheek and right side of the face. Findings likely represent myositis/cellulitis. No rim-enhancing fluid collections seen to suggest presence of an abscess. Swollen and hyperenhancing submandibular and sublingual glands, concerning for sialoadenitis. Bilateral submandibular lymphadenopathy, likely reactive. Globes are symmetric and intact. No retrobulbar soft tissue edema, hemorrhage or air. OTHER: None. IMPRESSION: 1. Findings likely represent submandibular and sublingual salivary adenitis along with myositis/cellulitis of the right neck, right cheek and right side of the face, as detailed above. No abscess seen. 2. Bilateral submandibular lymphadenopathy, likely reactive. 3. Periapical lucency around the right superior pole of the concerning for periodontitis. 4. Mild mucosal thickening of the right maxillary sinus, suggestive of nonobstructive acute sinusitis, likely odontogenic in origin. Reviewed, dictated and finalized at location N. IMPRESSION: 1. Findings likely represent submandibular and sublingual salivary adenitis al carisa with myositis/cellulitis of the right neck, right cheek and right side of t he face, as detailed above. No abscess seen. 2. Bilateral submandibular lymphadenopathy, likely reactive. 3. Periapical lucency around the right superior pole of the concerning for per iodontitis. 4. Mild mucosal thickening of the right maxillary sinus, suggestive of nonobst ructive acute sinusitis, likely odontogenic in origin.
[2025-02-20 10:49] VITALS: BP 161/81; PULSE 70; RESP 18; TEMP 36.7; O2SAT 99
--- NOTE | 2025-02-20 11:03 | ED.DENTAL ---
HPI - Dental/Oral General Chief complaint: Dental/Oral Stated complaint: R jaw swelling/abscess Time Seen by Provider: 02/20/25 10:49 History of Present Illness HPI Narrative: 49-year-old female presents to ER in the adjacent right mandibular swelling. Patient states that she was recently with a dental abscess and started on Augmentin. Was seen at the dentist yesterday were a molar was removed and the abscess drained. Patient states he has continued to experience swelling to the right side of her jaw. Denies fevers. Related Data Home Medications ?Medication ?Instructions ?Recorded ?Confirmed ?Last Taken ?Type amlodipine 10 mg tablet 10 mg PO DAILY 07/01/19 07/01/24 05/24/20 History hydrocodone 5 mg-acetaminophen 325 1 tablet PO PRN PRN Back Pain 07/01/19 07/01/24 05/24/20 History mg tablet ([place]) insulin human U-100 NPH-regulr 10 unit subcut DAILY 07/01/19 07/01/24 05/24/20 History 70-30 mix 100 unit/mL subcutaneous susp (Humulin 70/30 U-100 Insulin) losartan 50 mg tablet 50 mg PO DAILY 07/01/19 07/01/24 05/24/20 History paroxetine HCl 20 mg tablet (Paxil) 60 mg PO DAILY 07/01/19 07/01/24 05/24/20 History ascorbic acid (vitamin C) 500 mg 500 mg PO DAILY 01/19/20 07/01/24 05/22/20 History capsule cholecalciferol (vitamin D3) 10 10 mcg PO DAILY 01/19/20 07/01/24 05/22/20 History mcg (400 unit) chewable tablet (Kids Vitamin D3) magnesium oxide 400 mg (241.3 mg 400 mg PO DAILY 01/19/20 07/01/24 05/22/20 History magnesium) tablet multivit,Ca,iej-gful-UV-guarana-caff 1 tablet PO DAILY 01/19/20 07/01/24 05/22/20 History 9 mg iron-400 mcg-200 mg tablet (One-[employer]) potassium chloride 10 mEq 10 meq PO DAILY 01/19/20 07/01/24 05/22/20 History tablet,extended release solifenacin 10 mg tablet 10 mg PO DAILY 01/19/20 07/01/24 05/24/20 History amoxicillin 875 mg-potassium 1 tablet PO Q12H 02/20/25 02/20/25 02/20/25 History clavulanate 125 mg tablet Allergies Allergy/AdvReac Type Severity Reaction Status Date / Time No Known Allergies Allergy Verified 02/20/25 10:53 Review of Systems Review of Systems: All systems reviewed & are unremarkable except as noted in HPI and below PMFSH Past Medical History Medical History Obesity Chronic narcotic use Depression Anxiety COPD (chronic obstructive pulmonary disease) TIA (transient ischemic attack) Tobacco abuse Systolic ejection murmur Hypertension associated with diabetes Mixed anxiety depressive disorder Essential hypertension Heart murmur Type II diabetes mellitus Surgical History Surgical History History of X2 History of lumbar fusion H/O dilation and curettage Family History Family History Father Hypertension Murmur Pacemaker Mother Seizure Social History Social History Smoking packs per day: 1 Smoking cigarettes per day: 20.0 Years smoked: 25 Smoking pack-years: 25.00 Smoking status: Current every day smoker Tobacco type: cigarettes Alcohol intake: current Substance use: never Living arrangements: with family Gender identity (if verbalized by the patient): Female Sexual Orientation (if Verbalized by the Patient): Straight or Heterosexual Spiritual care concerns: No Agree to blood products: Yes Exam Const: General: healthy appearing Nutritional Appearance: well nourished Orientation/consciousness: patient oriented x3 Limitations: no limitations HENMT: Head: normal to inspection Teeth and gingiva: abnormal tooth and associated gingiva Other: Evidence of recently extracted tooth. The phlegmon noted to right mandible had no of obvious dental abscess noted Chest: Chest palpation & inspection: normal inspection of the chest Resp: Effort & Inspection: normal respiratory effort Auscultation: clear to auscultation bilaterally Cardio: Rate: regular rate Rhythm: regular rhythm Skin: General skin exam: normal color Rashes: no rashes Wounds: no wounds Neuro: General: patient oriented x3, moves all extremities and CN's II-XI intact bilaterally Speech: normal speech Gait exam (Neuro): Normal gait present Extrem: General: normal to inspection Psych: Mental Status: mental status grossly normal Affect: normal affect Attitude: cooperative Course Vital Signs Vital signs: Vital Signs Temperature 36.7 C 02/20/25 10:49 Pulse Rate 70 02/20/25 10:49 Respiratory Rate 18 02/20/25 10:49 Blood Pressure 161/81 H 02/20/25 10:49 Pulse Oximetry 99 02/20/25 10:49 Oxygen Delivery Room Air 02/20/25 10:49 Temperature 36.7 C 02/20/25 10:49 Pulse Rate 70 02/20/25 13:03 Respiratory Rate 16 02/20/25 13:03 Blood Pressure 138/70 02/20/25 13:03 Pulse Oximetry 98 02/20/25 13:03 Oxygen Delivery Room Air 02/20/25 10:49 MDM - Dental/Oral MDM Narrative Medical decision making narrative: In summary: 49-year-old female presented to ER for evaluation of swelling to her right jaw following dental extraction yesterday. Patient was encouraged to come to the ER for possible blood a dental abscess I&D. A CT scan of the face shows no evidence of drainable abscess. CT scan did show evidence of cellulitis. Patient was given 1 dose of IV clindamycin. Lab work was consistent with of infection. Will plan to discharge patient home with oral clindamycin and instructions to discontinue the Augmentin. Lab Data 02/20/25 11:24 02/20/25 11:24 Labs: Lab Results 02/20/25 02/20/25 02/20/25 Range/Units 11:24 11:24 11:24 WBC Cancelled 9.5 RBC Cancelled 4.77 Hgb Cancelled Hct MCV MCH MCHC RDW Plt Count MPV Immature Gran % (Auto) Neut % (Auto) Lymph % (Auto) [place] % (Auto) Eos % (Auto) Baso % (Auto) Lymph # (Auto) [place] # (Auto) Eos # (Auto) Baso # (Auto) Abs Immat Gran (auto) Absolute Neuts (auto) Absolute Nucleated RBC Nucleated RBC % % Immature Plt Fraction ESR (0-20) mm/hr Sodium (137-145) mmol/L Potassium (3.4-5.0) mmol/L Chloride (98-107) mmol/L Carbon Dioxide (22-30) mmol/L Anion Gap (4-12) mmol/L BUN (7-17) mg/dL Creatinine (0.7-1.0) mg/dL Estim Creat Clear Calc ml/min Estimated GFR (59 - ) Glucose (65-110) mg/dL Calcium (8.4-10.2) mg/dL C-Reactive Protein (<1.0) mg/dL 02/20/25 02/20/25 02/20/25 Range/Units 11: 11: 11:24 WBC RBC Hgb 14.6 Hct Cancelled 42.1 MCV Cancelled 88.3 MCH Cancelled MCHC RDW Plt Count MPV Immature Gran % (Auto) Neut % (Auto) Lymph % (Auto) [place] % (Auto) Eos % (Auto) Baso % (Auto) Lymph # (Auto) [place] # (Auto) Eos # (Auto) Baso # (Auto) Abs Immat Gran (auto) Absolute Neuts (auto) Absolute Nucleated RBC Nucleated RBC % % Immature Plt Fraction ESR (0-20) mm/hr Sodium (137-145) mmol/L Potassium (3.4-5.0) mmol/L Chloride (98-107) mmol/L Carbon Dioxide (22-30) mmol/L Anion Gap (4-12) mmol/L BUN (7-17) mg/dL Creatinine (0.7-1.0) mg/dL Estim Creat Clear Calc ml/min Estimated GFR (59 - ) Glucose (65-110) mg/dL Calcium (8.4-10.2) mg/dL C-Reactive Protein (<1.0) mg/dL 02/20/25 02/20/25 02/20/25 Range/Units 11: 11: 11:24 WBC RBC Hgb Hct MCV MCH 30.6 MCHC Cancelled 34.7 RDW Cancelled 12.8 Plt Count Cancelled MPV Immature Gran % (Auto) Neut % (Auto) Lymph % (Auto) [place] % (Auto) Eos % (Auto) Baso % (Auto) Lymph # (Auto) [place] # (Auto) Eos # (Auto) Baso # (Auto) Abs Immat Gran (auto) Absolute Neuts (auto) Absolute Nucleated RBC Nucleated RBC % % Immature Plt Fraction ESR (0-20) mm/hr Sodium (137-145) mmol/L Potassium (3.4-5.0) mmol/L Chloride (98-107) mmol/L Carbon Dioxide (22-30) mmol/L Anion Gap (4-12) mmol/L BUN (7-17) mg/dL Creatinine (0.7-1.0) mg/dL Estim Creat Clear Calc ml/min Estimated GFR (59 - ) Glucose (65-110) mg/dL Calcium (8.4-10.2) mg/dL C-Reactive Protein (<1.0) mg/dL 02/20/25 02/20/25 02/20/25 Range/Units 11:24 11:24 11:24 WBC RBC Hgb Hct MCV MCH MCHC RDW Plt Count 162 MPV Cancelled 11.5 H Immature Gran % (Auto) Cancelled 0.3 Neut % (Auto) Cancelled Lymph % (Auto) [place] % (Auto) Eos % (Auto) Baso % (Auto) Lymph # (Auto) [place] # (Auto) Eos # (Auto) Baso # (Auto) Abs Immat Gran (auto) Absolute Neuts (auto) Absolute Nucleated RBC Nucleated RBC % % Immature Plt Fraction ESR (0-20) mm/hr Sodium (137-145) mmol/L Potassium (3.4-5.0) mmol/L Chloride (98-107) mmol/L Carbon Dioxide (22-30) mmol/L Anion Gap (4-12) mmol/L BUN (7-17) mg/dL Creatinine (0.7-1.0) mg/dL Estim Creat Clear Calc ml/min Estimated GFR (59 - ) Glucose (65-110) mg/dL Calcium (8.4-10.2) mg/dL C-Reactive Protein (<1.0) mg/dL 02/20/25 02/20/25 02/20/25 Range/Units 11:24 11:24 11:24 WBC RBC Hgb Hct MCV MCH MCHC RDW Plt Count MPV Immature Gran % (Auto) Neut % (Auto) 61.5 Lymph % (Auto) Cancelled 19.9 [place] % (Auto) Cancelled 17.2 H Eos % (Auto) Cancelled Baso % (Auto) Lymph # (Auto) [place] # (Auto) Eos # (Auto) Baso # (Auto) Abs Immat Gran (auto) Absolute Neuts (auto) Absolute Nucleated RBC Nucleated RBC % % Immature Plt Fraction ESR (0-20) mm/hr Sodium (137-145) mmol/L Potassium (3.4-5.0) mmol/L Chloride (98-107) mmol/L Carbon Dioxide (22-30) mmol/L Anion Gap (4-12) mmol/L BUN (7-17) mg/dL Creatinine (0.7-1.0) mg/dL Estim Creat Clear Calc ml/min Estimated GFR (59 - ) Glucose (65-110) mg/dL Calcium (8.4-10.2) mg/dL C-Reactive Protein (<1.0) mg/dL 02/20/25 02/20/25 02/20/25 Range/Units 11:24 11:24 11:24 WBC RBC Hgb Hct MCV MCH MCHC RDW Plt Count MPV Immature Gran % (Auto) Neut % (Auto) Lymph % (Auto) [place] % (Auto) Eos % (Auto) 0.8 Baso % (Auto) Cancelled 0.3 Lymph # (Auto) Cancelled 1.89 [place] # (Auto) Cancelled Eos # (Auto) Baso # (Auto) Abs Immat Gran (auto) Absolute Neuts (auto) Absolute Nucleated RBC Nucleated RBC % % Immature Plt Fraction ESR (0-20) mm/hr Sodium (137-145) mmol/L Potassium (3.4-5.0) mmol/L Chloride (98-107) mmol/L Carbon Dioxide (22-30) mmol/L Anion Gap (4-12) mmol/L BUN (7-17) mg/dL Creatinine (0.7-1.0) mg/dL Estim Creat Clear Calc ml/min Estimated GFR (59 - ) Glucose (65-110) mg/dL Calcium (8.4-10.2) mg/dL C-Reactive Protein (<1.0) mg/dL 02/20/25 02/20/25 02/20/25 Range/Units 11:24 11:24 11:24 WBC RBC Hgb Hct MCV MCH MCHC RDW Plt Count MPV Immature Gran % (Auto) Neut % (Auto) Lymph % (Auto) [place] % (Auto) Eos % (Auto) Baso % (Auto) Lymph # (Auto) [place] # (Auto) 1.6 H Eos # (Auto) Cancelled 0.1 Baso # (Auto) Cancelled 0.0 Abs Immat Gran (auto) Cancelled Absolute Neuts (auto) Absolute Nucleated RBC Nucleated RBC % % Immature Plt Fraction ESR (0-20) mm/hr Sodium (137-145) mmol/L Potassium (3.4-5.0) mmol/L Chloride (98-107) mmol/L Carbon Dioxide (22-30) mmol/L Anion Gap (4-12) mmol/L BUN (7-17) mg/dL Creatinine (0.7-1.0) mg/dL Estim Creat Clear Calc ml/min Estimated GFR (59 - ) Glucose (65-110) mg/dL Calcium (8.4-10.2) mg/dL C-Reactive Protein (<1.0) mg/dL 02/20/25 02/20/25 02/20/25 Range/Units 11:24 11:24 11:24 WBC RBC Hgb Hct MCV MCH MCHC RDW Plt Count MPV Immature Gran % (Auto) Neut % (Auto) Lymph % (Auto) [place] % (Auto) Eos % (Auto) Baso % (Auto) Lymph # (Auto) [place] # (Auto) Eos # (Auto) Baso # (Auto) Abs Immat Gran (auto) 0.03 Absolute Neuts (auto) Cancelled 5.8 Absolute Nucleated RBC Cancelled 0.000 Nucleated RBC % Cancelled % Immature Plt Fraction ESR (0-20) mm/hr Sodium (137-145) mmol/L Potassium (3.4-5.0) mmol/L Chloride (98-107) mmol/L Carbon Dioxide (22-30) mmol/L Anion Gap (4-12) mmol/L BUN (7-17) mg/dL Creatinine (0.7-1.0) mg/dL Estim Creat Clear Calc ml/min Estimated GFR (59 - ) Glucose (65-110) mg/dL Calcium (8.4-10.2) mg/dL C-Reactive Protein (<1.0) mg/dL 02/20/25 02/20/25 02/20/25 Range/Units 11:24 11:24 11:24 WBC RBC Hgb Hct MCV MCH MCHC RDW Plt Count MPV Immature Gran % (Auto) Neut % (Auto) Lymph % (Auto) [place] % (Auto) Eos % (Auto) Baso % (Auto) Lymph # (Auto) [place] # (Auto) Eos # (Auto) Baso # (Auto) Abs Immat Gran (auto) Absolute Neuts (auto) Absolute Nucleated RBC Nucleated RBC % 0.0 % Immature Plt Fraction Cancelled ESR 22 H (0-20) mm/hr Sodium 124 L Cancelled (137-145) mmol/L Potassium 3.6 Cancelled (3.4-5.0) mmol/L Chloride 90 L (98-107) mmol/L Carbon Dioxide (22-30) mmol/L Anion Gap (4-12) mmol/L BUN (7-17) mg/dL Creatinine (0.7-1.0) mg/dL Estim Creat Clear Calc ml/min Estimated GFR (59 - ) Glucose (65-110) mg/dL Calcium (8.4-10.2) mg/dL C-Reactive Protein (<1.0) mg/dL 02/20/25 02/20/25 02/20/25 Range/Units 11:24 11:24 11:24 WBC RBC Hgb Hct MCV MCH MCHC RDW Plt Count MPV Immature Gran % (Auto) Neut % (Auto) Lymph % (Auto) [place] % (Auto) Eos % (Auto) Baso % (Auto) Lymph # (Auto) [place] # (Auto) Eos # (Auto) Baso # (Auto) Abs Immat Gran (auto) Absolute Neuts (auto) Absolute Nucleated RBC Nucleated RBC % % Immature Plt Fraction ESR (0-20) mm/hr Sodium (137-145) mmol/L Potassium (3.4-5.0) mmol/L Chloride Cancelled (98-107) mmol/L Carbon Dioxide 25 Cancelled (22-30) mmol/L Anion Gap 9 Cancelled (4-12) mmol/L BUN 7 (7-17) mg/dL Creatinine (0.7-1.0) mg/dL Estim Creat Clear Calc ml/min Estimated GFR (59 - ) Glucose (65-110) mg/dL Calcium (8.4-10.2) mg/dL C-Reactive Protein (<1.0) mg/dL 02/20/25 02/20/25 02/20/25 Range/Units 11:24 11:24 11:24 WBC RBC Hgb Hct MCV MCH MCHC RDW Plt Count MPV Immature Gran % (Auto) Neut % (Auto) Lymph % (Auto) [place] % (Auto) Eos % (Auto) Baso % (Auto) Lymph # (Auto) [place] # (Auto) Eos # (Auto) Baso # (Auto) Abs Immat Gran (auto) Absolute Neuts (auto) Absolute Nucleated RBC Nucleated RBC % % Immature Plt Fraction ESR (0-20) mm/hr Sodium (137-145) mmol/L Potassium (3.4-5.0) mmol/L Chloride (98-107) mmol/L Carbon Dioxide (22-30) mmol/L Anion Gap (4-12) mmol/L BUN Cancelled (7-17) mg/dL Creatinine 0.47 L Cancelled (0.7-1.0) mg/dL Estim Creat Clear Calc 106 Cancelled ml/min Estimated GFR > 60 (59 - ) Glucose (65-110) mg/dL Calcium (8.4-10.2) mg/dL C-Reactive Protein (<1.0) mg/dL 02/20/25 02/20/25 02/20/25 Range/Units 11:24 11:24 11:24 WBC RBC Hgb Hct MCV MCH MCHC RDW Plt Count MPV Immature Gran % (Auto) Neut % (Auto) Lymph % (Auto) [place] % (Auto) Eos % (Auto) Baso % (Auto) Lymph # (Auto) [place] # (Auto) Eos # (Auto) Baso # (Auto) Abs Immat Gran (auto) Absolute Neuts (auto) Absolute Nucleated RBC Nucleated RBC % % Immature Plt Fraction ESR (0-20) mm/hr Sodium (137-145) mmol/L Potassium (3.4-5.0) mmol/L Chloride (98-107) mmol/L Carbon Dioxide (22-30) mmol/L Anion Gap (4-12) mmol/L BUN (7-17) mg/dL Creatinine (0.7-1.0) mg/dL Estim Creat Clear Calc ml/min Estimated GFR Cancelled (59 - ) Glucose 151 H Cancelled (65-110) mg/dL Calcium 8.9 Cancelled (8.4-10.2) mg/dL C-Reactive Protein 3.8 H (<1.0) mg/dL Discharge Plan Discharge Clinical Impression: Phlegmonous cellulitis, Pain, dental Patient Disposition: Home Condition: Stable Instructions: Antibiotic Form, Toothache (ED) Patient Language: Nauruan Prescriptions: New clindamycin HCl [Cleocin HCl] 300 mg capsule 300 mg PO Q6H Qty: 28 0RF No Action amoxicillin-pot clavulanate 875-125 mg tablet 1 tablet PO Q12H Humulin 70/30 U-100 Insulin 100 unit/mL (70-30) Suspension 10 unit SUBCUT DAILY Rx Instructions: PT TAKES IN AFTERNOON losartan 50 mg Tablet 50 mg PO DAILY amlodipine 10 mg Tablet 10 mg PO DAILY paroxetine HCl [Paxil] 20 mg Tablet 60 mg PO DAILY hydrocodone-acetaminophen [[place]] 5-325 mg Tablet 1 tablet PO PRN PRN (Reason: Back Pain) aspirin [Children's Aspirin] 81 mg Tablet,Chewable 81 mg PO QAM 30 Days Qty: 30 0RF potassium chloride 10 mEq Tablet Extended Release 10 meq PO DAILY magnesium oxide 400 mg (241.3 mg magnesium) Tablet 400 mg PO DAILY solifenacin 10 mg Tablet 10 mg PO DAILY cholecalciferol (vitamin D3) [Kids Vitamin D3] 10 mcg (400 unit) Tablet,Chewable 10 mcg PO DAILY One-A-Day Energy 9 mg iron-400 mcg-200 mg Tablet 1 tablet PO DAILY ascorbic acid (vitamin C) 500 mg Capsule 500 mg PO DAILY hydrocodone-acetaminophen 5-325 mg tablet 1 - 2 tablet PO Q4H PRN (Reason: pain) Qty: 25 0RF Follow-up/Referrals: Bull,Lilian Almendarez MS [employer] DEV[employer] [Primary Care Provider, Unknown] Stand Alone Forms: Work/School Release IP Time of Disposition: 13:15
--- OUTSIDE RECORDS SUMMARY | 2025-02-20 11:12 | XMS_ITS | Clinical Summary ---
Author Organization [facility] Address [address] [place] [address] Care Team Providers Care Capability Lead Name Role Phone Jimmie Vo APRN-[facility] Primary Care Provider Source Comments [facility],non-owned Affiliates and Associated Physician Practices is amultiple site organization consisting of ambulatory clinics and hospital sitesin [place], [place], [place] and [place]. This disclosure is being madepursuant to the Care Everywhere program and may not contain all information available regarding this patient. Last updated 18.[facility] [employer] Allergies No known active allergies Medications * Be aware that medications may not be up to date on this document. Alwaysverify current medications with the patient. insulin NPH (HUMULIN N) vial Inject subcutaneously. 7 Active traZODone (DESYREL) 100 MG tablet Take 100 mg by mouth. 7 Active ibuprofen (MOTRIN) 600 MG tablet Take 600 mg by mouth q6h PRN. 30 tablet 0 7 Active Additional Information Patient not taking.Reported on 04/30/2020 PARoxetine (PAXIL) 10 MG tablet Take 10 mg by mouth DAILY. 7 Active butalbital-acet aminophen-caffe ine (FIORICET) 50-325-40 MG tablet Take 1 tablet by mouth q6h PRN (Headache). 10 tablet 0 7 Active Additional Information Patient not taking.Reported on 04/30/2020 HYDROcodone-milka taminophen (NORCO) 5-325 MG tablet Take 1 tablet by mouth q4h PRN (Pain). 7 Active ondansetron (ZOFRAN) 4 MG tablet Take 4 mg by mouth q8h PRN (Nausea) for up to 6 doses. 6 tablet 0 7 Active Additional Information Patient not taking.Reported on 04/30/2020 SOLIFENACIN SUCCINATE PO Take 10 mg by mouth once daily Active losartan (COZAAR) 50 MG tablet Take 50 mg by mouth once daily Active Magnesium 400 MG Take 400 mg by mouth once daily Active Cholecalciferol (VITAMIN D3) 1.25 MG (76144 UT) TABS Take 50,000 Units by mouth once daily Active Ascorbic Acid (VITAMIN C) 500 MG Take 500 mg by mouth once daily Active Family History Medical History Relation Name Comments Cancer - Breast Paternal Grandmother Relation Name Status Comments Paternal Grandmother Social History Tobacco Use Types Packs/Day Years Used Date Smoking Tobacco: Every Day Cigarettes Alcohol Use Standard Drinks/Week Comments Yes 0 (1 standard drink = 0.6 oz pur e alcohol) Comments Unknown Sex and Gender Information Value Date Recorded Sex Assigned at Not on file 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 Gender Identity Not on file Sexual Orientation Not on file Last Filed Vital Signs Vital Sign Reading Time Taken Comments Blood Pressure 205/70 06/23/2016 3:45 PM EXPERT MEDICAL WRITER Pulse 50 06/23/2016 3:45 PM EXPERT MEDICAL WRITER Temperature 36.4 C (97.5 F) 06/23/2016 3:41 PM EXPERT MEDICAL WRITER Respiratory Rate 14 06/23/2016 3:45 PM EXPERT MEDICAL WRITER Oxygen Saturation 100% 06/23/2016 3:45 PM EXPERT MEDICAL WRITER Inhaled Oxygen Concentration - - Weight 93.6 kg (206 lb 6.4 oz) 06/23/2016 12:59 PM EXPERT MEDICAL WRITER Height 165.1 cm (5' 5) 06/23/2016 12:59 PM EXPERT MEDICAL WRITER Body Mass Index 34.35 06/23/2016 12:59 PM EXPERT MEDICAL WRITER Plan of Treatment Health Maintenance Due Date Last Done Comments COLOGUARD (AGES 45-75) - COL ON CA SCREENING 1973 COLON MONITORING 1973 COLONOSCOPY - COLON CA SCREENING 1973 CT COLONOGRAPHY - COLON CA SCREENING 1973 Colorectal Cancer Screening 1973 FIT - COLON CA SCREENING 1973 FLEX SIG - COLON CA SCREENING 1973 LIPID TESTING 1973 HIV SCREENING 1988 HEPATITIS C SCREENING 11/25/1991 DTAP/TDAP/TD VACCINES (1 - Tdap) 1992 HEPATITIS B VACCINE (1 of 3 - 19+ 3-dose series) 1992 PNEUMOCOCCAL VACCINE 50+ (1 of 2 - PCV) 1992 MAMMOGRAM 04/03/2022 04/03/2020 ZOSTER VACCINE (1 of 2) 11/30/2023 COVID-19 VACCINE (1 - 2023-2 5 season) 2024 DEPRESSION SCREENING 06/19/2024 INFLUENZA VACCINE (#1) 2025 0, 03/29/2016 HIB VACCINE Aged Out No longer eligi ble based on patient's age to complete this topic HPV VACCINE Aged Out No longer eligi ble based on patient's age to complete this topic MENINGOCOCCAL (Group B) VACCINE SHARED DECISION-MAKING Aged Out No longer eligible based on patient's age to complete this topic MENINGOCOCCAL GROUPS A/C/Y/W VACCINE Aged Out No longer eligible b ased on patient's age to complete this topic Procedures Procedure Name Priority Date/Time Associated Diagnosis Comments MM OUTSIDE MAMMOGRAM Routine 04/03/2020 3:55 PM CDT Abnormal mammogram from Last 3 Months or Most Recently Relevant to Health Maintenance Results * MM OUTSIDE MAMMO FILM READ (04/03/2020 3:55 PM CDT) Anatomical Region Laterality Modality Other 04/06/2020 9:29 AM CDT Impressions 04/06/2020 9:43 AM CDT IMPRESSION: Focal asymmetry with possible architectural distortion noted on mammography and ultrasound in the outer right breast is thought suspicious, but not adequately evaluated. Bilateral circumscribed masses within both breasts are thought probably benign, with the dominant mass palpable in the right breast measuring up to 2.8 cm in size. ASSESSMENT: BI-RADS category 0, incomplete: needs additional imaging evaluation. RECOMMENDATION: Additional diagnostic images of the questioned architectural distortion in the outer right breast including mammography and ultrasound is recommended. Right axillary ultrasound is recommended. Biopsy recommendations will be made once diagnostic images have been performed. Likely 2 ultrasound-guided biopsies of the right breast will be recommended, one of the area of architectural distortion, and the second of the dominant mass. This report was electronically signed by MU GAUTAM M.D. on 04/06/2020 9:43 AM . Narrative 04/06/2020 9:43 AM CDT BREAST IMAGING OUTSIDE INTERPRETATION STUDIES PROVIDED FOR INTERPRETATION: Bilateral diagnostic mammogram on 03/12/2020 as well as bilateral ultrasound on 03/12/2020 No comparisons are provided, this is a baseline. The provided studies are from [facility]. The above studies were provided for interpretation on 04/06/2020. HISTORY: The patient is a 44-year-old female who underwent bilateral diagnostic mammograms for a lump within the right breast. She was found to have bilateral breast masses on diagnostic evaluation, for which biopsy was recommended. Images are being reviewed for consultation to consider biopsy. FINDINGS: Diagnostic mammogram: Right breast: The palpable mass corresponds to an oval circumscribed equal density mass in the lower outer subareolar breast measuring 2.7 cm in size. A questioned focal asymmetry with architectural distortion is noted in the upper outer right breast at anterior depth, best seen on mediolateral oblique 3-D slice 26 and mediolateral 3-D slice 31. This is not as well seen on spot compressed images or the craniocaudal projection. Left breast: Multiple small oval circumscribed masses are seen within the left breast. The dominant mass is located in the lower inner subareolar breast at anterior depth, best seen on mediolateral spot compressed 3-D slice 25 and craniocaudal spot compressed 3-D slice 1. ULTRASOUND: Right breast ultrasound: The palpable lump corresponds to a parallel hypoechoic circumscribed mass with mild internal blood flow in 8/9:00 position 4 cm from the nipple. This mass measures 2.9 x 1.3 x 2.1 cm in size. What may represent the focal asymmetry with architectural distortion noted in the upper outer right breast on mammography is an area of architectural distortion questioned in the 8-9:00 position of the right breast on ultrasound 4 cm from the nipple. Repeat ultrasound of this area is recommended. Left breast ultrasound: As noted on the mammogram, multiple small circumscribed masses are seen within the left breast. The largest mass corresponds to a hypoechoic oval parallel circumscribed mass in the subareolar left breast near 6:00 measuring 1.0 x 1.0 x 0.4 cm in size. Procedure Note Sandy Gautam MD - 04/06/2020 BREAST IMAGING OUTSIDE INTERPRETATION STUDIES PROVIDED FOR INTERPRETATION: Bilateral diagnostic mammogram on 03/12/2020 as well as bilateral ultrasound on 03/12/2020 No comparisons are provided, this is a baseline. The provided studiesare from [facility]. The above studies were provided for interpretation on 04/06/2020. HISTORY: The patient is a 44-year-old female who underwent bilateral diagnostic mammograms for a lump within the right breast. She was found to have bilateral breast masses on diagnostic evaluation, for which biopsy was recommended. Images are being reviewed for consultation to consider biopsy. FINDINGS: Diagnostic mammogram: Right breast: The palpable mass corresponds to an oval circumscribedequal density mass in the lower outer subareolar breast measuring 2.7 cm in size. A questioned focal asymmetry with architectural distortion is noted inthe upper outer right breast at anterior depth, best seen on mediolateral oblique 3-D slice 26 and mediolateral 3-D slice 31. This is not as well seen on spot compressed images or the craniocaudal projection. Left breast: Multiple small oval circumscribed masses are seen withinthe left breast. The dominant mass is located in the lower inner subareolar breast at anterior depth, best seen on mediolateral spot compressed 3-D slice 25 and craniocaudal spot compressed 3-D slice 1. ULTRASOUND: Right breast ultrasound: The palpable lump corresponds to a parallel hypoechoic circumscribed mass with mild internal blood flow in 8/9:00 position 4 cm from the nipple. This mass measures 2.9 x 1.3 x 2.1 cm in size. What may represent the focal asymmetry with architectural distortionnoted in the upper outer right breast on mammography is an area ofarchitectural distortion questioned in the 8-9:00 position of the right breast on ultrasound 4 cm from the nipple. Repeat ultrasound of this area is recommended. Left breast ultrasound: As noted on the mammogram, multiple small circumscribed masses are seen within the left breast. The largest mass corresponds to a hypoechoic oval parallel circumscribed mass in the subareolar left breast near 6:00 measuring 1.0 x 1.0 x 0.4 cm in size. IMPRESSION: Focal asymmetry with possible architectural distortion noted on mammography and ultrasound in the outer right breast is thought suspicious, but not adequately evaluated. Bilateral circumscribed masses within both breasts are thought probably benign, with the dominant mass palpable in the right breast measuring up to 2.8 cm in size. ASSESSMENT: BI-RADS category 0, incomplete: needs additional imaging evaluation. RECOMMENDATION: Additional diagnostic images of the questioned architectural distortionin the outer right breast including mammography and ultrasound is recommended. Right axillary ultrasound is recommended. Biopsy recommendations will be made once diagnostic images have been performed. Likely 2 ultrasound-guided biopsies of the right breast willbe recommended, one of the area of architectural distortion, and the second of the dominant mass. This report was electronically signed by MU GAUTAM M.D. on 04/06/2020 9:43 AM . Karen Whitmore MD IMAGING Final Resul t from Last 3 Months or Most Recently Relevant to Health Maintenance Insurance [id number] [place] [address] [id number] [place] [address] Care Teams Capability Lead Relationship Specialty Start Date End Date Jimmie Vo, JOVANI-GREEN INSPECTOR PCP - General 06/23/16
--- OUTSIDE RECORDS SUMMARY | 2025-02-20 11:12 | XMS_ITS | Clinical Summary ---
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
--- OUTSIDE RECORDS SUMMARY | 2025-02-20 11:12 | XMS_ITS | Encounter Summary ---
[facility] Organization [facility] Address 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 Gender Identity Not on file Sexual Orientation [...] ORDERABLES Final R esult Performing Organization Address [facility] Phone Number INTERFACE SYSTEM Refer to clinic/hospital [...] ORDERABLES Final Re sult Performing Organization Address [facility] Phone Number INTERFACE SYSTEM Refer to clinic/hospital department documented in this encounter Visit Diagnoses Diagnosis Displacement of lumbar intervertebral disc without myelopathy- Primary documented in this encounter
[2025-02-20] MEDS: CLINDAMYCIN 600 MG/D5W 50 ML 600 MG/50 ML PIGGYBACK 100 MG IVPB (11:23)
[2025-02-20] MEDS: KETOROLAC 30 MG/ML VIAL (*BKC) IV PUSH (11:23)
[2025-02-20 11:30] LABS: Hematocrit 42.1 % (37.0-47.0); Hemoglobin 14.6 g/dL (12.0-15.0); Immature Granulocyte Percent A 0.3 % (0-0.5); Lymphocytes Absolute Auto 1.89 K/mm3 (0.9-3.2); Mean Corpuscular HGB Conc 34.7 g/dl (32-36); Mean Corpuscular Hemoglobin 30.6 pg (26-34); Mean Corpuscular Volume 88.3 fl (80-100); Nucleated Red Blood Cells Absolute Auto 0.000 K/mm3 (0.0-0.012); Nucleated Red Blood Cells Perc 0.0 % (0.0-0.2); Platelet Count Result 162 k/mm3 (150-375); Red Blood Count 4.77 M/mm3 (4.2-5.4); White Blood Count 9.5 K/mm3 (4.5-10.0)
--- OUTSIDE RECORDS SUMMARY | 2025-02-20 11:46 | XMS_ITS | Clinical Summary ---
Author Organization [facility] Address [address] [place] [id number] Care Team Providers Care Wellness Health Coach Name Role Phone Unavailable Primary Care Provider [...] 2) 11/30/2023 COVID-19 Vaccine (2023-2 5 season) 2025 Meningococcal B Vaccine Aged Out No l onger eligible based on patient's age to complete this topic Meningococcal Vaccine Aged Out No yudi kurt eligible based on patient's age to complete this topic RSV Immunizations Under 20 Months Aged Out No longer eligible based on patient's age to complete this topic
--- OUTSIDE RECORDS SUMMARY | 2025-02-20 11:47 | XMS_ITS | Clinical Summary ---
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
--- OUTSIDE RECORDS SUMMARY | 2025-02-20 11:47 | XMS_ITS | Encounter Summary ---
Author Organization [facility] Address 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
--- OUTSIDE RECORDS SUMMARY | 2025-02-20 11:47 | XMS_ITS | Clinical Summary ---
Author Organization [facility] Address [address] [place] [address] Care Team Providers Care Refuse And Recycling Worker Name Role Phone Jimmie Vo APRN-[facility] Primary Care Provider Source Comments [facility],non-owned Affiliates and Associated Physician Practices is amultiple site organization consisting of ambulatory clinics and hospital sitesin [place], [place], [place] and [place]. This disclosure is being madepursuant to the Care Everywhere program and may not contain all information available regarding this patient. 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 Gender Identity Not on file Sexual Orientation Not on file Last Filed Vital Signs Vital Sign Reading Time Taken Comments Blood Pressure 205/70 06/23/2016 3:45 PM ORDNANCE TRUCK INSTALLATION SUPERVISOR Pulse 50 06/23/2016 3:45 PM ORDNANCE TRUCK INSTALLATION SUPERVISOR Temperature 36.4 C (97.5 F) 06/23/2016 3:41 PM ORDNANCE TRUCK INSTALLATION SUPERVISOR Respiratory Rate 14 06/23/2016 3:45 PM ORDNANCE TRUCK INSTALLATION SUPERVISOR Oxygen Saturation 100% 06/23/2016 3:45 PM ORDNANCE TRUCK INSTALLATION SUPERVISOR Inhaled Oxygen Concentration - - Weight 93.6 kg (206 lb 6.4 oz) 06/23/2016 12:59 PM ORDNANCE TRUCK INSTALLATION SUPERVISOR Height 165.1 cm (5' 5) 06/23/2016 12:59 PM ORDNANCE TRUCK INSTALLATION SUPERVISOR Body Mass Index 34.35 06/23/2016 12:59 PM ORDNANCE TRUCK INSTALLATION SUPERVISOR Plan of Treatment Health Maintenance Due Date [...] a baseline. The provided studies are from [facility]. The above studies were provided for interpretation [...] is a baseline. The provided studiesare from [facility]. The above studies were provided for interpretation [...] Most Recently Relevant to Health Maintenance Insurance [id number] [place] [id number] [place] [address] Care Teams Refuse And Recycling Worker Relationship Specialty Start Date End Date Jimmie Vo, JOVANI-SPANISH PROFESSOR PCP - General 06/23/16
[2025-02-20 11:55] LABS: CRP 3.8 mg/dL (<1.0)
[2025-02-20 12:06] VITALS: BP 142/72; PULSE 66; RESP 16; O2SAT 96
[2025-02-20 12:31] LABS: Anion Gap 9 mmol/L (4-12); Blood Urea Nitrogen 7 mg/dL (7-17); Calcium 8.9 mg/dL (8.4-10.2); Carbon Dioxide 25 mmol/L (22-30); Chloride 90 mmol/L (98-107); Estimated CRCL calculation 106 ml/min; Estimated Glomerular Filt Rate > 60; Glucose 151 mg/dL (65-110); Potassium 3.6 mmol/L (3.4-5.0); Sodium 124 mmol/L (137-145)
[2025-02-20 13:03] VITALS: BP 138/70; PULSE 70; RESP 16; O2SAT 98
== END 2025-02-20 13:23 | disposition home or self-care (01) ==
PROVIDERS: Emergency Provider Nurse Practitioner Family; PCP Nurse Practitioner Family
DX: L03.211 Cellulitis of face (principal); K08.89 Other specified disorders of teeth and supporting structures; F17.210 Nicotine dependence, cigarettes, uncomplicated
CPT/HCPCS: 36415; 70487; 80048; 85025; 85652; 86140; 96365; 96375; 99284; J1885; Q9967